=== PATIENT | female | born 1940 | race Caucasian/White ===

== ENCOUNTER 2016-08-30 16:43 | Observation (INO) | payer MEDICARE, OTHER ==
[2016-08-30] MEDS ORDERED: SODIUM CHLORIDE 0.9% 1,000 ML IV ONE ×2 (18:51)
[2016-08-30] MEDS ORDERED: ONDANSETRON 4 MG/2 ML VIAL IVP STA (19:24)
[2016-08-30] MEDS ORDERED: ONDANSETRON 4 MG/2 ML VIAL ONE ×2 (19:26→21:59)
[2016-08-30] MEDS ORDERED: PROMETHAZINE 25 MG/1 ML VIAL IM PRN (20:55)
[2016-08-30] MEDS ORDERED: ACETAMINOPHEN 325 MG TABLET PO PRN (20:55)
[2016-08-30] MEDS ORDERED: PROCHLORPERAZINE 10 MG/2 ML VIAL IVP PRN (20:55)
[2016-08-30] MEDS ORDERED: ONDANSETRON 4 MG/2 ML VIAL IVP PRN (20:55)
[2016-08-30] MEDS ORDERED: SODIUM CHLORIDE FLUSH 0.9% 10 ML SYRINGE IVP PRN (20:55)
[2016-08-30] MEDS ORDERED: TEMAZEPAM 15 MG CAPSULE PO PRN (20:55)
[2016-08-30] MEDS ORDERED: MAG HYDROX/AL HYDROX/SIMETH 30 ML UDC PO SCH (20:59)
[2016-08-30] MEDS: SODIUM CHLORIDE FLUSH 0.9% 10 ML SYRINGE IVP SCH (22:26)
[2016-08-30] MEDS: NS W/20 MEQ KCL 1,000 ML IV SCH (22:51)
[2016-08-31] MEDS ORDERED: PROMETHAZINE 25 MG/1 ML VIAL ONE (02:45)
[2016-08-31] MEDS: SODIUM CHLORIDE FLUSH 0.9% 10 ML SYRINGE IVP SCH ×3 (06:52→20:39)
[2016-08-31] MEDS: ENOXAPARIN 40 MG/0.4 ML SYRINGE SUBQ SCH (09:11)
[2016-08-31] MEDS: POLYETHYLENE GLYCOL 3350 17 GM PACKET PO SCH (09:11)
[2016-08-31] MEDS: NS W/20 MEQ KCL 1,000 ML IV SCH ×2 (09:12→19:22)
[2016-08-31] MEDS ORDERED: POTASSIUM CHLORIDE 20 MEQ TABLET PO ONE (11:50)
[2016-08-31] MEDS: guaiFENesin/DEXTROMETHORPHAN 10 ML UDC PO PRN (13:50)
[2016-09-01] MEDS: guaiFENesin/DEXTROMETHORPHAN 10 ML UDC PO PRN (01:03)
[2016-09-01] MEDS: NS W/20 MEQ KCL 1,000 ML IV SCH (05:10)
[2016-09-01] MEDS: SODIUM CHLORIDE FLUSH 0.9% 10 ML SYRINGE IVP SCH (05:10)
[2016-09-01] MEDS: POLYETHYLENE GLYCOL 3350 17 GM PACKET PO SCH (08:23)
[2016-09-01] MEDS: ENOXAPARIN 40 MG/0.4 ML SYRINGE SUBQ SCH (08:23)
[2016-09-01] MEDS ORDERED: LISINOPRIL 20 MG TABLET PO SCH (09:00)
[2016-09-01] MEDS ORDERED: amLODIPine 5 MG TABLET PO SCH (09:00)
[2016-09-01] MEDS ORDERED: POTASSIUM CHLORIDE 10 MEQ CAPSULE PO ONE (09:00)
== END 2016-09-01 10:25 | disposition home or self-care (01) ==
DX: K52.9 Noninfective gastroenteritis and colitis, unspecified (principal); E86.1 Hypovolemia; E22.2 Syndrome of inappropriate secretion of antidiuretic hormone; I10 Essential (primary) hypertension; E87.6 Hypokalemia; E86.0 Dehydration; J06.9 Acute upper respiratory infection, unspecified; F17.210 Nicotine dependence, cigarettes, uncomplicated; Z87.01 Personal history of pneumonia (recurrent); Z86.14 Personal history of Methicillin resistant Staphylococcus aureus infection
CPT/HCPCS: 36415; 71020; 80048; 80053; 81003; 82330; 82570; 83690; 83735; 83935; 84100; 84300; 84443; 85025; 87275; 87276; 96361; 96372; 96374; 96375; 96376; 99284; 99285; A9270; G0378; J1650

== ENCOUNTER 2016-09-26 15:23 | Outpatient (CLI) | payer MEDICARE, OTHER | END 2016-09-26 15:24 | disposition home or self-care (01) | DX: E78.5 Hyperlipidemia, unspecified (principal); Z86.2 Personal history of diseases of the blood and blood-forming organs and certain disorders involving the immune mechanism ==

== ENCOUNTER 2016-10-07 09:36 | Outpatient (CLI) | payer MEDICARE, OTHER | END 2016-10-07 09:37 | disposition home or self-care (01) | DX: Z71.3 Dietary counseling and surveillance (principal); R11.0 Nausea; Z68.1 Body mass index [BMI] 19.9 or less, adult ==

== ENCOUNTER 2016-12-19 11:10 | Outpatient (CLI) | payer MEDICARE, OTHER ==
[2016-12-19 19:21] LABS: CALCIUM 9.7 mg/dL (8.5-10.3); CREATININE 0.5 mg/dL (0.4-1.0); POTASSIUM 4.4 mmol/L (3.5-5.0)
== END 2016-12-19 11:11 | disposition home or self-care (01) ==
LOC: LAB.WCP 11:10
PROVIDERS: ATTEND Physician Assistant Medical
DX: I10 Essential (primary) hypertension (principal)
CPT/HCPCS: 36415; 80048

== ENCOUNTER 2017-09-29 12:25 | Outpatient (CLI) | payer MEDICARE, OTHER ==
--- NOTE | 2017-09-29 14:48 | CT Report ---
CT CHEST WITHOUT CONTRAST FOR LUNG CANCER SCREENIN09/29/2017 CLINICAL INDICATION: A 77-year-old with a [id number] history of smoking, current smoker for lung cancer screening. TECHNIQUE: Axial CT images of the chest were obtained without intravenous contrast, using low dose screening technique. COMPARISON: No previous CT is available for comparison. FINDINGS: The heart and great vessels demonstrate atherosclerotic calcifications. No hilar or mediastinal lymphadenopathy is present. The lungs demonstrate emphysema. No suspicious pulmonary nodule or mass lesion is present. No effusion or pneumothorax is present. Osseous structures demonstrate degenerative changes. Limited evaluation of upper abdominal structures demonstrates normal adrenal glands. IMPRESSION: EMPHYSEMA. NO EVIDENCE OF SUSPICIOUS PULMONARY NODULE OR MASS LESION. RECOMMENDATION: Continue annual screening with low dose chest CT in 12 months unless otherwise clinically indicated. LUNG RADS CATEGORY 1 - NEGATIVE. CT DOSE REDUCTION STATEMENT In accordance with CT protocol optimization, one or more of the following dose reduction techniques were utilized for this exam: automated exposure control, adjustment of mA and/or KV based on patient size, or use of iterative reconstructive technique. TD: 09/29/2017 14:47
== END 2017-09-29 12:26 | disposition home or self-care (01) ==
LOC: DI 12:25
PROVIDERS: ATTEND Physician Assistant Medical
DX: Z12.2 Encounter for screening for malignant neoplasm of respiratory organs (principal); J43.9 Emphysema, unspecified; F17.210 Nicotine dependence, cigarettes, uncomplicated

== ENCOUNTER 2017-09-30 07:11 | Outpatient (CLI) | payer MEDICARE, OTHER ==
[2017-09-30 12:46] LABS: EOSINOPHILS # (AUTO) 0.2 10^3/uL (0.0-0.7); EOSINOPHILS % (AUTO) 4.1 %; HGB - HEMOGLOBIN 13.6 g/dL (12.0-16.0); LYMPHOCYTES # (AUTO) 1.8 10^3/uL (1.5-3.5); LYMPHOCYTES % (AUTO) 40.4 %; MEAN CORPUSCULAR HEMOGLOBIN 34.2 pg (27.0-31.0); MEAN CORPUSCULAR HGB CONC 34.7 g/dL (32.0-36.0); MEAN CORPUSCULAR VOLUME 98.8 fL (81.0-99.0); MEAN PLATELET VOLUME 8.6 fL (7.9-10.8); MONOCYTES # (AUTO) 0.5 10^3/uL (0.0-1.0); MONOCYTES % (AUTO) 10.4 %; NEUTROPHILS % (AUTO) 44.1 %; PLT - PLATELET COUNT 169 10^3/uL (130-450); RED BLOOD COUNT 3.97 10^6/uL (4.20-5.40); RED CELL DISTRIBUTION WIDTH 13.1 % (12.0-15.0); WHITE BLOOD COUNT 4.4 x10^3/uL (4.8-10.8)
[2017-09-30 13:05] LABS: ALBUMIN 4.3 g/dL (3.2-5.5); ALBUMIN/GLOBULIN RATIO 1.9 (1.0-2.2); ALKALINE PHOSPHATASE 58 IU/L (42-121); ALT ALANINE AMINOTRANSFERASE 39 IU/L (10-60); AST ASPARTATE AMINOTRANSFERASE 28 IU/L (10-42); BILIRUBIN,TOTAL 0.8 mg/dL (0.2-1.0); BUN - BLOOD UREA NITROGEN 13 mg/dL (6-20); CALCIUM 9.4 mg/dL (8.5-10.3); CARBON DIOXIDE - CO2 28 mmol/L (21-32); CHLORIDE 98 mmol/L (101-111); CREATININE 0.6 mg/dL (0.4-1.0); GFR - MDRD 97 (>89); GLUCOSE 89 mg/dL (70-100); SODIUM 132 mmol/L (135-145); TOTAL PROTEIN 6.6 g/dL (6.7-8.2)
[2017-09-30 13:06] LABS: CHOL/HDL RATIO 2.3 (<4.4); CHOLESTEROL 169 mg/dL; HDL CHOLESTEROL 73 mg/dL; LDL CHOLESTEROL,CALCULATED 87 mg/dL; LDL/HDL RATIO 1.2 (<4.4); VLDL CHOLESTEROL 9 mg/dL
== END 2017-09-30 07:12 | disposition home or self-care (01) ==
LOC: LAB.WCP 07:11
PROVIDERS: ATTEND Physician Assistant Medical
DX: E78.5 Hyperlipidemia, unspecified (principal); Z86.2 Personal history of diseases of the blood and blood-forming organs and certain disorders involving the immune mechanism
CPT/HCPCS: 36415; 80053; 80061; 83721; 85025

== ENCOUNTER 2019-08-28 08:58 | Outpatient (CLI) | payer MEDICARE, BC ==
--- NOTE | 2019-08-28 14:04 | XRAY Report ---
Reason: right knee pain Procedure Date: 08/28/2019 Accession Number: [id number] / [id number] Procedure: XR - Knee Standing RT CPT Code: Final Report FULL RESULT: EXAM: RIGHT KNEE RADIOGRAPHY EXAM DATE: 08/28/2019 09:24 AM. CLINICAL HISTORY: Right knee pain. COMPARISON: None. TECHNIQUE: 3 views. FINDINGS: Bones: Bones are osteopenic. No evidence of acute fracture. There are some areas of lucency within the distal medial femur. These could represent subchondral cysts. Joints: No evidence of dislocation. There is a small suprapatellar joint effusion. There is moderate lateral compartment joint space narrowing. Soft Tissues: No unexpected soft tissue findings. IMPRESSION: 1. No fracture or dislocation. 2. There is moderate lateral compartment degenerative disease. 3. There is a small suprapatellar joint effusion. RADIA
== END 2019-08-28 08:59 | disposition home or self-care (01) ==
LOC: DI 08:58
PROVIDERS: ATTEND Physician Assistant Medical
DX: M17.11 Unilateral primary osteoarthritis, right knee (principal)

== ENCOUNTER 2020-03-21 14:04 | Outpatient (CLI) | payer MEDICARE, BC ==
--- NOTE | 2020-03-21 15:28 | XRAY Report ---
PROCEDURE: Ribs w/PA Chest RT INDICATIONS: RIGHT SIDED RIB PAIN TECHNIQUE: 2 views of the right ribs were acquired, along with a single view chest. COMPARISON: Chest radiograph dated 08/30/[address] of chest dated 09/29/2017 FINDINGS: Surgical changes and devices: None. Bones and chest wall: No fractures or dislocations. No suspicious bony lesions. Overlying soft tis sues appear unremarkable. Lungs and pleura: No pleural effusions or pneumothorax. Lungs appear clear. Mediastinum: Mediastinal contours appear normal. Heart size is normal. IMPRESSION: No gross displaced right rib fracture. No suspicious rib lesion. No acute cardiopulmonary pathology. Reviewed by: Morgan Triana MD on 03/21/2020 3:26 PM PDT Approved by: Morgan Triana MD on 03/21/2020 3:26 PM PDT Station ID: [id number]
== END 2020-03-21 23:59 ==
LOC: DI.WCP 14:04
PROVIDERS: ATTEND Family Medicine
DX: R07.81 Pleurodynia (principal)

== ENCOUNTER 2020-03-28 07:04 | Outpatient (CLI) | payer MEDICARE, BC ==
[2020-03-28 12:14] LABS: BASOPHILS # (AUTO) 0.1 10^3/uL (0.0-0.1); BASOPHILS % (AUTO) 1.1 %; EOSINOPHILS # (AUTO) 0.1 10^3/uL (0.0-0.7); EOSINOPHILS % (AUTO) 2.4 %; HGB - HEMOGLOBIN 14.3 g/dL (12.0-16.0); LYMPHOCYTES # (AUTO) 1.8 10^3/uL (1.5-3.5); LYMPHOCYTES % (AUTO) 38.6 %; MEAN CORPUSCULAR HGB CONC 33.9 g/dL (32.0-36.0); MEAN CORPUSCULAR VOLUME 103.2 fL (81.0-99.0); MEAN PLATELET VOLUME 9.9 fL (7.9-10.8); MONOCYTES # (AUTO) 0.5 10^3/uL (0.0-1.0); MONOCYTES % (AUTO) 10.3 %; NEUTROPHILS # (AUTO) 2.2 10^3/uL (1.5-6.6); NEUTROPHILS % (AUTO) 47.2 %; PLT - PLATELET COUNT 245 10^3/uL (130-450); RED BLOOD COUNT 4.09 10^6/uL (4.20-5.40); RED CELL DISTRIBUTION WIDTH 13.2 % (12.0-15.0); WHITE BLOOD COUNT 4.6 x10^3/uL (4.8-10.8)
[2020-03-28 12:36] LABS: % IRON SATURATION 58 % (20-50); ALBUMIN 4.3 g/dL (3.2-5.5); ALBUMIN/GLOBULIN RATIO 1.7 (1.0-2.2); ALKALINE PHOSPHATASE 82 IU/L (42-121); ALT ALANINE AMINOTRANSFERASE 31 IU/L (10-60); AST ASPARTATE AMINOTRANSFERASE 29 IU/L (10-42); BILIRUBIN,TOTAL 0.8 mg/dL (0.2-1.0); BUN - BLOOD UREA NITROGEN 12 mg/dL (6-20); CALCIUM 9.6 mg/dL (8.5-10.3); CARBON DIOXIDE - CO2 28 mmol/L (21-32); CHLORIDE 94 mmol/L (101-111); CHOL/HDL RATIO 2.3 (<4.4); CHOLESTEROL 205 mg/dL; CREATININE 0.6 mg/dL (0.4-1.0); FERRITIN 287.7 ng/mL (11.0-306.8); GLUCOSE 85 mg/dL (70-100); HDL CHOLESTEROL 89 mg/dL; IRON 183 ug/dL (28-170); LDL CHOLESTEROL,CALCULATED 100 mg/dL; LDL/HDL RATIO 1.1 (<4.4); SODIUM 130 mmol/L (135-145); TOTAL IRON BINDING CAPACITY 314 ug/dL (250-450); TOTAL PROTEIN 6.9 g/dL (6.7-8.2); TRANSFERRIN 224 mg/dL (192-382); VLDL CHOLESTEROL 16 mg/dL
== END 2020-03-28 23:59 | disposition home or self-care (01) ==
LOC: LAB.WCP 07:04
PROVIDERS: ATTEND Physician Assistant Medical
DX: E78.5 Hyperlipidemia, unspecified (principal); Z86.2 Personal history of diseases of the blood and blood-forming organs and certain disorders involving the immune mechanism; I10 Essential (primary) hypertension
CPT/HCPCS: 36415; 80053; 80061; 82728; 83540; 83721; 84443; 84466; 85025

== ENCOUNTER 2020-04-26 08:24 | Outpatient (CLI) | payer MEDICARE, BC | END 2020-04-26 08:25 | disposition critical access hospital (66) | LOC: EMS 08:24 | PROVIDERS: ATTEND Surgery | DX: M54.9 Dorsalgia, unspecified (principal); R42 Dizziness and giddiness; R61 Generalized hyperhidrosis | CPT/HCPCS: A0425; A0427 ==

== ENCOUNTER 2020-04-26 09:05 | Emergency (ER) | payer MEDICARE, BC ==
--- NOTE | 2020-04-26 09:16 | ED Physician Documentation ---
PD HPI BACK PAIN - Stated complaint Stated Complaint: WEAKNESS - History obtained from History obtained from: Patient - Additional information Additional information: 79-year-old woman with history of hypertension on lisinopril and amlodipine. She has been in her usual routine and got up this morning feeling pretty normal. She went out to walk her dog and around 7:45 AM developed a severe low backache and presyncope. There was no chest pain or shortness of breath. Paramedics were summoned and on an evaluation she was quite orthostatic, systolic blood pressure went from 90 supine to 60 or so standing. Pain is improved now. She h as never had this before. 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 HEENT: Cataracts, Tonsil/Adenoidectomy - Present Medications Home Medications: Ambulatory Orders Medication Instructions Recorded Confirmed lisinopriL [Prinivil] 20 mg PO DAILY 02/02/14 08/31/16 Eszopiclone [Lunesta] 2 mg PO QPM PRN 11/03/14 08/31/16 amLODIPine [Norvasc] 5 mg PO DAILY 08/31/16 08/31/16 guaiFENesin/DEXTROMETHORPHAN 10 ml PO Q6HR PRN #0 udc 09/01/16 [Robitussin Dm] - Allergies Allergies/Adverse Reactions: Allergies Allergy/AdvReac Type Severity Reaction Status Date / Time codeine Allergy Hives Verified 11/05/14 10:12 loratadine [From Claritin-D] Allergy Emesis Verified 11/05/14 10:12 meperidine HCl * Allergy Hives Verified 11/05/14 10:12 [From Demerol] pseudoephedrine sulfate * Allergy Emesis Verified 11/05/14 10:12 [From Claritin-D] - Social History Does the pt smoke?: Yes Smoking Status: Current every day smoker Does the pt drink ETOH?: Yes Does the pt have substance abuse?: No - Immunizations Immunizations are current?: Yes - POLST Patient has POLST: No PD ED PE NORMAL - Vitals Vital signs reviewed: Yes - General General: Alert and oriented X 3, Other (Appears slightly uncomfortable) - HEENT HEENT: PERRL, EOMI - Neck Neck: Supple, no meningeal sign, No bony TTP - Cardiac Cardiac: RRR, No murmur - Respiratory Respiratory: No respiratory distress, Clear bilaterally - Abdomen Abdomen: Soft, Non tender, Other (I do not appreciate a AAA on bedside ultrasound) - Derm Derm: Normal color, Warm and dry - Extremities Extremities: Other (Feet are warm and well perfused) - Neuro Neuro: Alert and oriented X 3, Normal speech - Psych Psych: Normal mood, Normal affect Results - Vitals Vitals: Vital Signs - 24 hr 04/26/20 04/26/20 04/26/20 09:10 09:30 09:54 Temperature 36.3 C L Heart Rate 66 65 Respiratory 16 20 Rate Blood Pressure 117/75 73/50 L Blood Pressure 79/48 L [Left] Blood Pressure 80/51 L [Right] O2 Saturation 95 93 04/26/20 04/26/20 04/26/20 10:03 10:04 10:09 Temperature Heart Rate 76 Respiratory 21 Rate Blood Pressure Blood Pressure 75/51 L 78/52 L [Left] Blood Pressure 76/54 L 85/51 L [Right] O2 Saturation 100 04/26/20 04/26/20 10:11 10:15 Temperature 36.5 C Heart Rate 77 Respiratory 21 Rate Blood Pressure Blood Pressure 87/57 L [Left] Blood Pressure 91/56 L [Right] O2 Saturation 97 Oxygen O2 Source Room air - EKG (time done) 0918 Rate: Rate (enter#) (62) Rhythm: NSR [place]: Normal Intervals: Other (borderline IVCD) QRS: Low voltage Ischemia: Normal ST segments Computer interpretation: Agree with computer - Labs Labs: Laboratory Tests 04/26/20 04/26/20 04/26/20 09:26 09:26 09:26 WBC 6.8 RBC 3.41 L Hgb 11.7 L Hct 34.7 L MCV 101.8 H MCH 34.3 H MCHC 33.7 RDW 12.8 Plt Count 147 MPV 9.0 Neut # (Auto) 4.6 Lymph # (Auto) 1.5 [place] # (Auto) 0.5 Eos # (Auto) 0.1 Baso # (Auto) 0.0 Absolute Nucleated RBC 0.00 Nucleated RBC % 0.0 PT 13.2 H INR 1.2 Sodium 134 L Potassium 3.9 Chloride 98 L Carbon Dioxide 27 Anion Gap 9.0 BUN 16 Creatinine 0.7 Estimated GFR (MDRD) 81 L Glucose 98 Calcium 9.0 Total Bilirubin 0.8 AST 24 ALT 26 Alkaline Phosphatase 76 Troponin I High Sens Total Protein 5.5 L Albumin 3.6 Globulin 1.9 L Albumin/Globulin Ratio 1.9 04/26/20 09:26 WBC RBC Hgb Hct MCV MCH MCHC RDW Plt Count MPV Neut # (Auto) Lymph # (Auto) [place] # (Auto) Eos # (Auto) Baso # (Auto) Absolute Nucleated RBC Nucleated RBC % PT INR Sodium Potassium Chloride Carbon Dioxide Anion Gap BUN Creatinine Estimated GFR (MDRD) Glucose Calcium Total Bilirubin AST ALT Alkaline Phosphatase Troponin I High Sens 3.4 Total Protein Albumin Globulin Albumin/Globulin Ratio - Rads (name of study) CT Chest Angio Radiology: EMP read contemporaneously (Type a thoracic aortic dissection from a dilated aortic root measuring 5.3 cm down to the upper abdominal aorta. It looks like it occludes the celiac trunk and into the SMA origin. Renal arteries are patent.) PD MEDICAL DECISION MAKING - ED course ED course: 79-year-old woman presents with backache and hypotension, orthostatic. Given the constellation of symptoms, vascular etiology is of significant concern. Bedside ultrasound did not demonstrate a AAA, subsequently went over to CT noting that I told the vocational technical education director to do this before labs have a high suspicion for dissection and she does have a type a aortic dissection. [facility] was called for expedited transfer. She was accepted the [facility] by Dr. Joe Hines, cobras were completed. She has been on and off hypotensive in the range of 90/60 in both upper extremities. This was discussed with the cardiothoracic surgeon and felt like as long as her mentation was okay, which it was, this is acceptable. - Critical Care Time(min): 45 Time Includes: Direct patient care, Review records, Reassess patient, Document care, Coordinate care, Medical consult Data interpretation: Labs, Pulse ox Procedures excluded from critical care time: EKG Departure - Departure Disposition: 02 Transfer Acute Care Hosp Clinical Impression: Type 1 dissection of ascending aorta Condition: Critical
[2020-04-26] MEDS ORDERED: IOVERSOL 320 100 ML VIAL IVP ONE ×2 (09:31→17:32)
[2020-04-26 09:36] LABS: BASOPHILS % (AUTO) 0.6 %; EOSINOPHILS # (AUTO) 0.1 10^3/uL (0.0-0.7); EOSINOPHILS % (AUTO) 1.3 %; HGB - HEMOGLOBIN 11.7 g/dL (12.0-16.0); LYMPHOCYTES # (AUTO) 1.5 10^3/uL (1.5-3.5); LYMPHOCYTES % (AUTO) 21.5 %; MEAN CORPUSCULAR HEMOGLOBIN 34.3 pg (27.0-31.0); MEAN CORPUSCULAR HGB CONC 33.7 g/dL (32.0-36.0); MEAN CORPUSCULAR VOLUME 101.8 fL (81.0-99.0); MONOCYTES # (AUTO) 0.5 10^3/uL (0.0-1.0); MONOCYTES % (AUTO) 7.5 %; NEUTROPHILS # (AUTO) 4.6 10^3/uL (1.5-6.6); NEUTROPHILS % (AUTO) 68.2 %; PLT - PLATELET COUNT 147 10^3/uL (130-450); RED BLOOD COUNT 3.41 10^6/uL (4.20-5.40); RED CELL DISTRIBUTION WIDTH 12.8 % (12.0-15.0); WHITE BLOOD COUNT 6.8 x10^3/uL (4.8-10.8)
[2020-04-26] MEDS ORDERED: SODIUM CHLORIDE 0.9% 1,000 ML IV STA (09:38)
[2020-04-26 09:39] LABS: INR 1.2 (0.8-1.2); PT - PROTHROMBIN TIME 13.2 secs (9.9-12.6)
[2020-04-26 09:46] LABS: ALBUMIN 3.6 g/dL (3.2-5.5); ALBUMIN/GLOBULIN RATIO 1.9 (1.0-2.2); BILIRUBIN,TOTAL 0.8 mg/dL (0.2-1.0); CREATININE 0.7 mg/dL (0.4-1.0); TOTAL PROTEIN 5.5 g/dL (6.7-8.2)
--- NOTE | 2020-04-26 10:15 | CT Report ---
PROCEDURE: ANGIO CHEST W/WO INDICATIONS: aorta protocol, back pain, hypotension CONTRAST: IV CONTRAST: Optiray 320 ml: 100 PO CONTRAST: *NO PO CONTRAST TECHNIQUE: After the administration of intravenous contrast, 2 mm thick sections acquired from the pulmonary api silviano to the posterior costophrenic angles. 3-dimensional maximum intensity projection (MIP) coronal a nd sagittal reformats were then acquired through the thorax. For radiation dose reduction, the follow ing was used: automated exposure control, adjustment of mA and/or kV according to patient size. COMPARISON: CT chest 09/29/2017 FINDINGS: Massive dilatation of the aortic root and descending aortic arch up to 5.3 cm. There is a [place] a aortic dissection. The true lumen involves/contains the origins of the 3 arch branch vessels. The dis section flap does not extend into the arch branch vessels. The dissection flap does however extend th rough the aortic arch and descending thoracic aorta. Noncontrast images demonstrate no evidence of hy perdense periaortic hemorrhage to indicate rupture. The dissection extends into the upper abdominal aorta. The celiac trunk arises from the false lumen a nd is completely occluded. The dissection flap itself extends into the SMA origin, resulting in appro ximately 30-40% stenosis of the SMA origin. Both renal arteries are widely patent. Please see CT monalisa ogram of the abdominal aorta for further description abdominal and pelvic vascular findings. Lungs and pleural spaces are predominantly clear with a few nonspecifically solid nodules measuring u p to 5 mm in both lungs.4 no pericardial effusion. 4 vessel coronary atherosclerosis. Normal caliber main pulmonary trunk. No threshold enlarged mediastinal or hilar lymph node. No acute osseous finding . IMPRESSION: [place] type A thoracic aortic dissection. Findings were discussed with Dr. Kwan at 1000 on 04/13. Reviewed by: Alon Powell MD on 04/26/2020 10:14 AM PDT Approved by: Alon Powell MD on 04/26/2020 10:14 AM PDT Station ID: [id number]
--- NOTE | 2020-04-26 10:27 | CT Report ---
PROCEDURE: ANGIO ABDOMEN/PELVIS W INDICATIONS: Aortic dissection CONTRAST: IV CONTRAST: Optiray 320 ml: 100 PO CONTRAST: *NO PO CONTRAST TECHNIQUE: After the administration of intravenous contrast, 2 and 5 mm sections acquired from the diaphragm to the iliac crests. 3-dimensional maximum intensity projection (MIP) coronal and sagittal reformats, a nd/or 3-dimensional volume rendering reformatting was then performed. For radiation dose reduction, the following was used: automated exposure control, adjustment of mA and/or kV according to patient size. COMPARISON: None FINDINGS: Image quality: Excellent. Extravascular tissues: Lung bases are clear. Heart size is normal. Liver and spleen are normal in size and enhancement. Gallbladder has been removed Biliary system is dilated, slightly greater than expected for age and likely due to postcholecystectomy reservoir phenomenon Pancreas enhances normal ly. No adrenal nodules. Renal cysts without evidence of hydronephrosis or solid renal mass. Non-opac ified bowel loops demonstrate normal wall thickness and caliber. No free fluid or air. No retroperi toneal or mesenteric adenopathy. No ventral hernias. No suspicious bony abnormalities. No vertebra l body compression fractures. Abdominal aorta and visceral branches: [place] type A dissection extends into the SMA origin with a pproximately 30-40% stenosis as a result. The mesenteric vasculature appears normally perfused, howev er. The false lumen of the dissection occludes the celiac trunk. Both renal arteries are widely paten t. The [place] is widely patent. The iliac and femoral vessels demonstrate no evidence of stenosis. IMPRESSION: 1. [place] type A dissection extending into and mildly narrowing the SMA origin. 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 Dr. Todd was aware of the findings. Reviewed by: Alon Powell MD on 04/26/2020 10:26 AM PDT Approved by: Alon Powell MD on 04/26/2020 10:26 AM PDT Station ID: [id number]
[2020-04-26 10:30] VITALS: BP 83/51
== END 2020-04-26 10:39 | disposition short-term general hospital (02) ==
LOC: EDUNIT# → ED 09:05
DX: I71.01 Dissection of thoracic aorta (principal); I10 Essential (primary) hypertension; F17.200 Nicotine dependence, unspecified, uncomplicated
CPT/HCPCS: 36415; 71275; 74174; 80053; 84484; 85025; 85610; 93005; 99285; 99291; Q9967

== ENCOUNTER 2020-05-12 16:20 | Emergency (ER) | payer MEDICARE, BC ==
--- NOTE | 2020-05-12 16:35 | ED Physician Documentation ---
History of Present Illness - Stated complaint Stated Complaint: SOA/HBP/NOT RESPONDING TO MEDS - History obtained from History obtained from: Patient - History of Present Illness Timing: How many days ago (several) Pain level max: 0 Pain level now: 0 - Additonal information Additional information: Patient is a 79-year-old female who is status post a type a dissection status post supra coronary ascending aortic replacement with a 26 mm Dacron graft and transverse aortic arch graft. Her postoperative course after 04/26/2020 was complicated by a pericardial effusion, received a subxiphoid window on 05/03/2020. She also received chest tubes for bilateral pleural effusions. She was discharged on 05/08/2020. She states that since that time she has had increased difficulty breathing. Feels more and more short of breath. Contacted the [facility] who referred her here for evaluation. Worse with movement, better with rest. No fever. No chills. Has bilateral lower extremity swelling as well. Is on Lasix at home Review of Systems Ten Systems: 10 systems reviewed and negative Constitutional: denies: Fever, Chills Ears: denies: Ear pain Nose: denies: Rhinorrhea / runny nose, Congestion Respiratory: reports: Dyspnea. 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 HEENT: Cataracts, Tonsil/Adenoidectomy - Present Medications Home Medications: Ambulatory Orders Medication Instructions Recorded Confirmed lisinopriL [Prinivil] 20 mg PO DAILY 02/02/14 08/31/16 Eszopiclone [Lunesta] 2 mg PO QPM PRN 11/03/14 08/31/16 amLODIPine [Norvasc] 5 mg PO DAILY 08/31/16 08/31/16 guaiFENesin/DEXTROMETHORPHAN 10 ml PO Q6HR PRN #0 udc 09/01/16 [Robitussin Dm] - Allergies Allergies/Adverse Reactions: Allergies Allergy/AdvReac Type Severity Reaction Status Date / Time codeine Allergy Hives Verified 05/12/20 16:32 loratadine [From Claritin-D] Allergy Emesis Verified 05/12/20 16:32 meperidine HCl * Allergy Hives Verified 05/12/20 16:32 [From Demerol] pseudoephedrine sulfate * Allergy Emesis Verified 05/12/20 16:32 [From Claritin-D] - Social History Does the pt smoke?: Yes Smoking Status: Current every day smoker Does the pt drink ETOH?: Yes Does the pt have substance abuse?: No - Immunizations Immunizations are current?: Yes - POLST Patient has POLST: No PD ED PE NORMAL - Vitals Vital signs reviewed: Yes - General General: Alert and oriented X 3, No acute distress - HEENT HEENT: Moist mucous membranes - Neck Neck: Supple, no meningeal sign - Cardiac Cardiac: RRR, Strong equal pulses - Respiratory Respiratory: No respiratory distress, Other (crackles B) - Abdomen Abdomen: Soft, Non tender, Non distended - Derm Derm: Warm and dry - Extremities Extremities: Other (2+ B LE edema) - Neuro Neuro: Alert and oriented X 3 Results - Vitals Vitals: Vital Signs - 24 hr 05/12/20 05/12/20 05/12/20 16:30 17:00 17:30 Temperature 36.8 C Heart Rate 109 H 86 94 Respiratory 18 16 17 Rate Blood Pressure 179/102 H 154/86 H 152/85 H O2 Saturation 99 99 98 05/12/20 05/12/20 05/12/20 18:00 18:30 19:00 Temperature Heart Rate 98 100 101 H Respiratory 18 18 29 H Rate Blood Pressure 167/88 H 160/113 H 153/87 H O2 Saturation 99 99 95 05/12/20 05/12/20 05/12/20 19:30 20:00 20:30 Temperature Heart Rate 95 96 119 H Respiratory 28 H 25 H 28 H Rate Blood Pressure 140/71 H 134/72 H 135/85 H O2 Saturation 96 94 100 05/12/20 21:00 Temperature Heart Rate 111 H Respiratory 24 Rate Blood Pressure 134/84 H O2 Saturation 93 Oxygen O2 Source Room air - EKG (time done) 1632 Rate: Rate (enter#) (95) Rhythm: NSR, Other (PVC) [place]: Normal Intervals: Normal [place] QRS: Normal Ischemia: Normal ST segments, Q waves (V1-3) - Labs Labs: Laboratory Tests 05/12/20 05/12/20 05/12/20 16:35 16:35 16:35 WBC 12.1 H RBC 2.92 L Hgb 9.8 L Hct 29.8 L MCV 102.1 H MCH 33.6 H MCHC 32.9 RDW 17.2 H Plt Count 391 MPV 9.1 Neut # (Auto) 9.5 H Lymph # (Auto) 1.1 L [place] # (Auto) 1.3 H Eos # (Auto) 0.0 Baso # (Auto) 0.0 Absolute Nucleated RBC 0.00 Nucleated RBC % 0.0 Sodium 127 L Potassium 3.9 Chloride 92 L Carbon Dioxide 26 Anion Gap 9.0 BUN 12 Creatinine 0.4 Estimated GFR (MDRD) 154 Glucose 126 H Calcium 9.2 Total Bilirubin 0.5 AST 17 ALT 22 Alkaline Phosphatase 101 B-Natriuretic Peptide 309 H Total Protein 6.3 L Albumin 3.2 Globulin 3.1 Albumin/Globulin Ratio 1.0 Lipase 19 L Urine Color Urine Clarity Urine pH Ur Specific [place] Urine Protein Urine Glucose (UA) Urine Ketones Urine Occult Blood Urine Nitrite Urine Bilirubin Urine Urobilinogen Ur Leukocyte Esterase Ur Microscopic Review Urine Culture Comments 05/12/20 18:15 WBC RBC Hgb Hct MCV MCH MCHC RDW Plt Count MPV Neut # (Auto) Lymph # (Auto) [place] # (Auto) Eos # (Auto) Baso # (Auto) Absolute Nucleated RBC Nucleated RBC % Sodium Potassium Chloride Carbon Dioxide Anion Gap BUN Creatinine Estimated GFR (MDRD) Glucose Calcium Total Bilirubin AST ALT Alkaline Phosphatase B-Natriuretic Peptide Total Protein Albumin Globulin Albumin/Globulin Ratio Lipase Urine Color YELLOW Urine Clarity CLEAR Urine pH 7.5 Ur Specific [place] 1.010 Urine Protein NEGATIVE Urine Glucose (UA) NEGATIVE Urine Ketones TRACE Urine Occult Blood NEGATIVE Urine Nitrite NEGATIVE Urine Bilirubin NEGATIVE Urine Urobilinogen 0.2 (NORMAL) Ur Leukocyte Esterase NEGATIVE Ur Microscopic Review NOT INDICATED Urine Culture Comments NOT INDICATED - Rads (name of study) cxr Radiology: Prelim report reviewed, EMP read contemporaneously, See rad report CT pulmonary angiogram Radiology: Prelim report reviewed, EMP read contemporaneously, See rad report PD MEDICAL DECISION MAKING - ED course Complexity details: reviewed old records, reviewed results, re-evaluated patient, considered differential, d/w patient, d/w family, d/w [place] consultant ED course: Patient with dyspnea 2 weeks status post ascending aortic dissection repair. She appears to have a left-sided pneumonia. Discussed the case with Dr. Larose, CT surgery at [facility]. Recommends admission to the hospitalist service here, IV antibiotics and continue diuresis. If she worsens over the weekend, would recommend transfer. He also recommends an echocardiogram. I discussed the case with Dr. Ricardo, hospitalist who does not feel comfortable keeping this patient here, in addition we do not have echo this weekend. Call Dr. Larose back, he states she probably does not need an echo and still recommends admission here. Discussed again with my hospitalist Dr. Ricardo who still does not feel comfortable keeping this patient here and feels she would be better served at a tertiary care facility. Call the [facility] back and request transfer. Transfer is pending at the time of signout. COBRA forms are completed, the patient will need continued treatment for her pneumonia while she is in the emergency department. She is eating and drinking. She states she feels better. Patient signed out to the oncoming emergency department physician. CXR Left greater than right small pleural effusions with overlying airspace opacity, likely atelectasis although consolidation from infection would need clinical exclusion. CT pulmonary angiogram: Post surgical changes of open surgical repair for [place] category A aortic dissection, along with fenestration of the distal aortic dissection segment. No acute postoperative complication identifi ed. Small-moderate bilateral pleural effusions with overlying atelectasis bilaterally, and overlying consolidation on the left. This could represent pneumonia and is the most plausible explanation for the patient's shortness of breath. No coronary embolism. Departure - Departure Disposition: 02 Transfer Acute Care Hosp Clinical Impression: Pleural effusion, Hyponatremia Pneumonia Qualifiers: Pneumonia type: due to unspecified organism Laterality: left Lung location: lower lobe of lung Qualified Code(s): J18.9 - Pneumonia, unspecified organism Dyspnea Qualifiers: Dyspnea type: unspecified Qualified Code(s): R06.00 - Dyspnea, unspecified Condition: Stable
[2020-05-12 16:41] LABS: BASOPHILS % (AUTO) 0.3 %; EOSINOPHILS % (AUTO) 0.3 %; HGB - HEMOGLOBIN 9.8 g/dL (12.0-16.0); LYMPHOCYTES # (AUTO) 1.1 10^3/uL (1.5-3.5); MEAN CORPUSCULAR HEMOGLOBIN 33.6 pg (27.0-31.0); MEAN CORPUSCULAR HGB CONC 32.9 g/dL (32.0-36.0); MEAN CORPUSCULAR VOLUME 102.1 fL (81.0-99.0); MEAN PLATELET VOLUME 9.1 fL (7.9-10.8); MONOCYTES # (AUTO) 1.3 10^3/uL (0.0-1.0); MONOCYTES % (AUTO) 10.5 %; NEUTROPHILS # (AUTO) 9.5 10^3/uL (1.5-6.6); NEUTROPHILS % (AUTO) 78.3 %; PLT - PLATELET COUNT 391 10^3/uL (130-450); RED BLOOD COUNT 2.92 10^6/uL (4.20-5.40); RED CELL DISTRIBUTION WIDTH 17.2 % (12.0-15.0); WHITE BLOOD COUNT 12.1 x10^3/uL (4.8-10.8)
--- NOTE | 2020-05-12 16:49 | XRAY Report ---
PROCEDURE: Chest 1 View X-Ray INDICATIONS: Chest Pain TECHNIQUE: One view of the chest was acquired. COMPARISON: 04/26/2020 CT angio chest FINDINGS: Surgical changes and devices: Median sternotomy changes. Lungs and pleura: Bilateral pleural effusions, left greater than right. Overlying atelectasis versus consolidation. No pneumothorax. Mediastinum: Mediastinal contours appear normal. Heart size is normal. Bones and chest wall: No suspicious bony lesions. Overlying soft tissues appear unremarkable. IMPRESSION: Left greater than right small pleural effusions with overlying airspace opacity, likely atelectasis a lthough consolidation from infection would need clinical exclusion. Reviewed by: Alon Powell MD on 05/12/2020 4:47 PM PDT Approved by: Alon Powell MD on 05/12/2020 4:47 PM PDT Station ID: [id number]
[2020-05-12 16:59] LABS: ALBUMIN 3.2 g/dL (3.2-5.5); BILIRUBIN,TOTAL 0.5 mg/dL (0.2-1.0); CALCIUM 9.2 mg/dL (8.5-10.3); CREATININE 0.4 mg/dL (0.4-1.0); TOTAL PROTEIN 6.3 g/dL (6.7-8.2)
[2020-05-12] MEDS ORDERED: IOVERSOL 320 100 ML VIAL IVP ONE ×2 (17:14→18:06)
--- NOTE | 2020-05-12 18:32 | CT Report ---
PROCEDURE: ANGIO CHEST W/WO INDICATIONS: dyspnea, possible PE, recent aortic graft, CONTRAST: IV CONTRAST: Optiray 320 ml: 80 PO CONTRAST: *NO PO CONTRAST TECHNIQUE: After the administration of intravenous contrast, 2 mm thick sections acquired from the pulmonary api silviano to the posterior costophrenic angles. 3-dimensional maximum intensity projection (MIP) coronal a nd sagittal reformats were then acquired through the thorax. For radiation dose reduction, the follow ing was used: automated exposure control, adjustment of mA and/or kV according to patient size. COMPARISON: 04/26/2020 FINDINGS: There are postsurgical changes of median sternotomy for open repair of previously identified [place] A aortic dissection. There is small volume fluid and air, within expected postoperative normal limit s status post median sternotomy. A stent graft is in place within the aortic root extending to the pr oximal aortic arch, appearing patent with no evidence of thrombosis or occlusion. The arch branch ves sels are adequately perfused with no evidence of flow limitation or occlusion. There is no contrast l eakage beyond the confines of the stent. There is some hyperdense but not contrast density material w ithin the medial and inferior aspects of the aortic arch, present on the prior study and presumably r epresenting retained intramural blood products or perhaps blood products within the false lumen. The dissection flap again extends through the aortic arch and descending thoracic aorta into the upper ab dominal aorta. The upper abdominal portion of the dissection flap appears to have been fenestrated to a degree, as there is improved perfusion of both the celiac trunk and SMA when compared with the charan or study, although flow is not entirely equal in density to that of the true lumen. Small to moderate-sized pleural effusions have developed, with overlying passive atelectasis combinat ion of overlying consolidation on the left (potentially consolidative atelectasis or pneumonia). No evidence of pulmonary embolism. IMPRESSION: Post surgical changes of open surgical repair for [place] category A aortic dissection, along with f enestration of the distal aortic dissection segment. No acute postoperative complication identified. Small-moderate bilateral pleural effusions with overlying atelectasis bilaterally, and overlying cons olidation on the left. This could represent pneumonia and is the most plausible explanation for the p atient's shortness of breath. No coronary embolism. Reviewed by: Alon Powell MD on 05/12/2020 6:31 PM PDT Approved by: Alon Powell MD on 05/12/2020 6:31 PM PDT Station ID: [id number]
[2020-05-12 18:45] LABS: BILIRUBIN,URINE NEGATIVE (NEGATIVE); GLUCOSE, URINE (UA) NEGATIVE (NEGATIVE); KETONES,URINE (UA) TRACE mg/dL (NEGATIVE); LEUKOCYTE ESTERASE, URINE NEGATIVE (NEGATIVE); NITRITE,URINE NEGATIVE (NEGATIVE); OCCULT BLOOD,URINE NEGATIVE (NEGATIVE); PH,URINE 7.5 PH (5.0-7.5); PROTEIN,URINE NEGATIVE (NEGATIVE); UROBILINOGEN,URINE 0.2 (NORMAL) E.U./dL (NORMAL)
[2020-05-12 18:49] LABS: CLARITY,URINE CLEAR (CLEAR)
[2020-05-12] MEDS ORDERED: AZITHROMYCIN INJ 500 MG in SODIUM CHLORIDE 0.9% 250 ML IV STA (20:20)
[2020-05-12] MEDS ORDERED: cefTRIAXone 1 GM VIAL IVP STA (20:20)
[2020-05-12] MEDS ORDERED: FUROSEMIDE 40 MG/4 ML VIAL IVP STA (20:20)
[2020-05-13 00:55] VITALS: BP 127/80
== END 2020-05-13 00:55 | disposition short-term general hospital (02) ==
LOC: ED 16:20
DX: J90 Pleural effusion, not elsewhere classified (principal); J18.9 Pneumonia, unspecified organism; E87.1 Hypo-osmolality and hyponatremia; I10 Essential (primary) hypertension; F17.200 Nicotine dependence, unspecified, uncomplicated
CPT/HCPCS: 36415; 71045; 71275; 80053; 81003; 83690; 83880; 85025; 93005; 96374; 99284; 99285; Q9967; U0004; 81001; 87086

== ENCOUNTER 2020-05-13 01:00 | Outpatient (CLI) | payer MEDICARE, BC | END 2020-05-13 01:01 | disposition short-term general hospital (02) | LOC: EMS 01:00 | PROVIDERS: ATTEND Surgery | DX: J90 Pleural effusion, not elsewhere classified (principal); J18.9 Pneumonia, unspecified organism | CPT/HCPCS: A0425; A0426 ==

== ENCOUNTER 2020-07-20 11:00 | Outpatient (CLI) | payer MEDICARE, BC ==
[2020-07-20 18:46] LABS: BASOPHILS # (AUTO) 0.1 10^3/uL (0.0-0.1); BASOPHILS % (AUTO) 1.3 %; EOSINOPHILS # (AUTO) 0.1 10^3/uL (0.0-0.7); EOSINOPHILS % (AUTO) 2.1 %; HGB - HEMOGLOBIN 10.8 g/dL (12.0-16.0); LYMPHOCYTES # (AUTO) 1.8 10^3/uL (1.5-3.5); MEAN CORPUSCULAR HEMOGLOBIN 30.3 pg (27.0-31.0); MEAN CORPUSCULAR HGB CONC 31.7 g/dL (32.0-36.0); MEAN CORPUSCULAR VOLUME 95.8 fL (81.0-99.0); MONOCYTES # (AUTO) 0.5 10^3/uL (0.0-1.0); MONOCYTES % (AUTO) 7.8 %; NEUTROPHILS # (AUTO) 3.8 10^3/uL (1.5-6.6); NEUTROPHILS % (AUTO) 60.3 %; PLT - PLATELET COUNT 266 10^3/uL (130-450); RED BLOOD COUNT 3.56 10^6/uL (4.20-5.40); RED CELL DISTRIBUTION WIDTH 16.2 % (12.0-15.0); WHITE BLOOD COUNT 6.3 x10^3/uL (4.8-10.8)
[2020-07-20 19:04] LABS: ALBUMIN 3.8 g/dL (3.2-5.5); ALBUMIN/GLOBULIN RATIO 1.3 (1.0-2.2); BILIRUBIN,TOTAL 0.4 mg/dL (0.2-1.0); CALCIUM 9.6 mg/dL (8.5-10.3); CREATININE 0.4 mg/dL (0.4-1.0); TOTAL PROTEIN 6.7 g/dL (6.7-8.2)
== END 2020-07-20 23:59 | disposition home or self-care (01) ==
LOC: LAB.WCP 11:00
PROVIDERS: ATTEND Physician Assistant Medical
DX: I50.9 Heart failure, unspecified (principal); I71.00 Dissection of unspecified site of aorta
CPT/HCPCS: 36415; 80053; 85025

== ENCOUNTER 2020-08-29 08:00 | Outpatient (CLI) | payer MEDICARE, BC ==
[2020-08-29 17:52] LABS: BASOPHILS # (AUTO) 0.1 10^3/uL (0.0-0.1); EOSINOPHILS # (AUTO) 0.2 10^3/uL (0.0-0.7); EOSINOPHILS % (AUTO) 3.1 %; HGB - HEMOGLOBIN 11.6 g/dL (12.0-16.0); LYMPHOCYTES # (AUTO) 1.7 10^3/uL (1.5-3.5); LYMPHOCYTES % (AUTO) 32.9 %; MEAN CORPUSCULAR HEMOGLOBIN 29.6 pg (27.0-31.0); MEAN CORPUSCULAR HGB CONC 31.7 g/dL (32.0-36.0); MEAN CORPUSCULAR VOLUME 93.4 fL (81.0-99.0); MEAN PLATELET VOLUME 10.2 fL (7.9-10.8); MONOCYTES # (AUTO) 0.5 10^3/uL (0.0-1.0); MONOCYTES % (AUTO) 8.7 %; NEUTROPHILS # (AUTO) 2.8 10^3/uL (1.5-6.6); NEUTROPHILS % (AUTO) 53.9 %; PLT - PLATELET COUNT 199 10^3/uL (130-450); RED BLOOD COUNT 3.92 10^6/uL (4.20-5.40); RED CELL DISTRIBUTION WIDTH 16.7 % (12.0-15.0); WHITE BLOOD COUNT 5.2 x10^3/uL (4.8-10.8)
[2020-08-29 20:29] LABS: CALCIUM 9.8 mg/dL (8.5-10.3); CREATININE 0.6 mg/dL (0.4-1.0)
== END 2020-08-29 23:59 | disposition home or self-care (01) ==
LOC: LAB.WCP 08:00
PROVIDERS: ATTEND Physician Assistant Medical
DX: I71.00 Dissection of unspecified site of aorta (principal); Z86.2 Personal history of diseases of the blood and blood-forming organs and certain disorders involving the immune mechanism
CPT/HCPCS: 36415; 80048; 82728; 83540; 84466; 85025

== ENCOUNTER 2020-11-28 08:00 | Outpatient (CLI) | payer MEDICARE, BC ==
[2020-11-28 18:01] LABS: BASOPHILS % (AUTO) 0.7 %; EOSINOPHILS # (AUTO) 0.1 10^3/uL (0.0-0.7); EOSINOPHILS % (AUTO) 2.3 %; HCT - HEMATOCRIT 35.5 % (37.0-47.0); HGB - HEMOGLOBIN 11.4 g/dL (12.0-16.0); LYMPHOCYTES # (AUTO) 1.5 10^3/uL (1.5-3.5); LYMPHOCYTES % (AUTO) 26.5 %; MEAN CORPUSCULAR HEMOGLOBIN 30.8 pg (27.0-31.0); MEAN CORPUSCULAR HGB CONC 32.1 g/dL (32.0-36.0); MEAN CORPUSCULAR VOLUME 95.9 fL (81.0-99.0); MEAN PLATELET VOLUME 10.2 fL (7.9-10.8); MONOCYTES # (AUTO) 0.5 10^3/uL (0.0-1.0); MONOCYTES % (AUTO) 8.7 %; NEUTROPHILS # (AUTO) 3.5 10^3/uL (1.5-6.6); NEUTROPHILS % (AUTO) 61.5 %; PLT - PLATELET COUNT 212 10^3/uL (130-450); RED CELL DISTRIBUTION WIDTH 14.5 % (12.0-15.0); WHITE BLOOD COUNT 5.7 x10^3/uL (4.8-10.8)
[2020-11-28 18:22] LABS: ALBUMIN/GLOBULIN RATIO 1.3 (1.0-2.2); BILIRUBIN,TOTAL 0.6 mg/dL (0.2-1.0); CALCIUM 9.5 mg/dL (8.5-10.3); CREATININE 0.6 mg/dL (0.4-1.0); POTASSIUM 3.8 mmol/L (3.5-5.0)
== END 2020-11-28 23:59 | disposition home or self-care (01) ==
LOC: LAB.WCP 08:00
PROVIDERS: ATTEND Physician Assistant Medical
DX: I71.00 Dissection of unspecified site of aorta (principal)
CPT/HCPCS: 36415; 80053; 85025

== ENCOUNTER 2021-06-19 08:00 | Outpatient (CLI) | payer MEDICARE, BC ==
[2021-06-19 12:21] LABS: BASOPHILS # (AUTO) 0.1 10^3/uL (0.0-0.1); EOSINOPHILS # (AUTO) 0.2 10^3/uL (0.0-0.7); EOSINOPHILS % (AUTO) 3.4 %; HCT - HEMATOCRIT 37.9 % (37.0-47.0); HGB - HEMOGLOBIN 12.5 g/dL (12.0-16.0); LYMPHOCYTES # (AUTO) 1.9 10^3/uL (1.5-3.5); LYMPHOCYTES % (AUTO) 27.7 %; MEAN CORPUSCULAR HEMOGLOBIN 31.8 pg (27.0-31.0); MEAN CORPUSCULAR VOLUME 96.4 fL (81.0-99.0); MEAN PLATELET VOLUME 10.5 fL (7.9-10.8); MONOCYTES # (AUTO) 0.7 10^3/uL (0.0-1.0); MONOCYTES % (AUTO) 9.8 %; NEUTROPHILS # (AUTO) 3.8 10^3/uL (1.5-6.6); NEUTROPHILS % (AUTO) 57.1 %; PLT - PLATELET COUNT 219 10^3/uL (130-450); RED BLOOD COUNT 3.93 10^6/uL (4.20-5.40); RED CELL DISTRIBUTION WIDTH 13.8 % (12.0-15.0); WHITE BLOOD COUNT 6.7 x10^3/uL (4.8-10.8)
[2021-06-19 12:47] LABS: ALBUMIN 3.9 g/dL (3.2-5.5); ALBUMIN/GLOBULIN RATIO 1.4 (1.0-2.2); ALKALINE PHOSPHATASE 94 IU/L (42-121); ALT ALANINE AMINOTRANSFERASE 24 IU/L (10-60); AST ASPARTATE AMINOTRANSFERASE 24 IU/L (10-42); BILIRUBIN,TOTAL 0.7 mg/dL (0.2-1.0); BUN - BLOOD UREA NITROGEN 17 mg/dL (6-20); CALCIUM 9.6 mg/dL (8.5-10.3); CARBON DIOXIDE - CO2 28 mmol/L (21-32); CHLORIDE 96 mmol/L (101-111); CHOL/HDL RATIO 2.7 (<4.4); CHOLESTEROL 175 mg/dL; CREATININE 0.4 mg/dL (0.4-1.0); GFR - MDRD 154 (>89); GLUCOSE 87 mg/dL (70-100); HDL CHOLESTEROL 64 mg/dL; LDL CHOLESTEROL,CALCULATED 102 mg/dL; LDL/HDL RATIO 1.6 (<4.4); POTASSIUM 4.1 mmol/L (3.5-5.0); SODIUM 133 mmol/L (135-145); TOTAL PROTEIN 6.6 g/dL (6.7-8.2); TRIGLYCERIDES 47 mg/dL; VLDL CHOLESTEROL 9 mg/dL
== END 2021-06-19 23:59 | disposition home or self-care (01) ==
LOC: LAB.WCP 08:00
PROVIDERS: ATTEND Physician Assistant Medical
DX: E78.5 Hyperlipidemia, unspecified (principal); Z86.2 Personal history of diseases of the blood and blood-forming organs and certain disorders involving the immune mechanism
CPT/HCPCS: 36415; 80053; 80061; 83721; 85025

== ENCOUNTER 2021-07-01 09:49 | Outpatient (CLI) | payer MEDICARE, BC ==
[2021-07-01] MEDS ORDERED: IOPAMIDOL-300 100 ML VIAL ONE (10:21)
[2021-07-01] MEDS: IOPAMIDOL-300 100 ML VIAL IVP ONE (12:40)
--- NOTE | 2021-07-01 17:39 | CT Report ---
PROCEDURE: ANGIO CHEST W/WO INDICATIONS: DISSECTION OF THORACIC AORTA CONTRAST: IV CONTRAST: Isovue 300 ml: 80 PO CONTRAST: *NO PO CONTRAST TECHNIQUE: After the administration of intravenous contrast, 2 mm axial images were acquired from the pulmonary apices to the posterior costophrenic angles during the arterial phase. In addition, 1 mm lung kernel and 5 mm soft tissue kernel reconstructions were performed. 3-dimensional coronal oblique maximum int ensity projection (MIP) reformats, 8 mm axial MIP, and 5 mm coronal and sagittal MPR reformats were t hen performed through the thorax. For radiation dose reduction, the following was used: automated exp osure control, adjustment of mA and/or kV according to patient size. COMPARISON: 05/12/2020 FINDINGS: Image quality: Excellent. Aorta: Postoperative changes of median sternotomy and repair of a [place] type a aortic dissection. The ascending aorta measures 2.7 cm. There is normal branching of the great vessels with no stenosis. No evidence of contrast extravasation. The true lumen continues anteriorly and then medially termina ting above the renal arteries. The celiac trunk originates from the false lumen. The SMA and both kyleigh al arteries originate from the true lumen. There is contrast in the false lumen of the distal thoraci c aorta and suprarenal abdominal aorta possibly due to fenestration. LUNGS: The lungs are clear. No pleural effusions or pneumothorax. Central and peripheral airways are patent. Mediastinum: Heart size is normal, without pericardial effusion. No mediastinal or hilar adenopathy . Thoracic aorta is normal in caliber and enhancement. Esophagus is normal in caliber, without hiat al hernia. Bones and chest wall: No suspicious bony lesions. Ribs and thoracic spine appear intact throughout. No axillary or supraclavicular adenopathy. The thyroid is normal in size and there are no incident al findings. Bilateral breast implants are intact. Abdomen: Visualized upper abdominal solid organs appear normal in the early arterial phase of enhanc ement. IMPRESSION: 1. [place] type A aortic dissection status post repair with no evidence of complication. 2. Previously seen pleural effusions have resolved. Reviewed by: Edison Dumont on 07/01/2021 4:38 PM [facility] Approved by: Edison Dumont on 07/01/2021 4:38 PM [facility] Station ID: [id number]
== END 2021-07-01 09:50 | disposition home or self-care (01) ==
LOC: LAB 09:49
PROVIDERS: ATTEND Internal Medicine Cardiovascular Disease
DX: Z86.79 Personal history of other diseases of the circulatory system (principal); I10 Essential (primary) hypertension
CPT/HCPCS: 71275; Q9967; 80048

== ENCOUNTER 2022-02-07 08:00 | Outpatient (CLI) | payer MEDICARE, BC ==
[2022-02-07 12:21] LABS: BILIRUBIN,URINE NEGATIVE (NEGATIVE); GLUCOSE, URINE (UA) NEGATIVE (NEGATIVE); KETONES,URINE (UA) NEGATIVE (NEGATIVE); LEUKOCYTE ESTERASE, URINE NEGATIVE (NEGATIVE); NITRITE,URINE NEGATIVE (NEGATIVE); OCCULT BLOOD,URINE TRACE-INTA (NEGATIVE); PROTEIN,URINE NEGATIVE (NEGATIVE); UROBILINOGEN,URINE 0.2 (NORMAL) E.U./dL (NORMAL)
[2022-02-07 12:36] LABS: BACTERIA,URINE Few /HPF (None Seen); CLARITY,URINE CLEAR (CLEAR); RBC,URINE None Seen /HPF (0-5); SQUAMOUS EPITHELIAL CELL,UR RARE Squamous (<= Few); WBC,URINE 0-3 /HPF (0-5)
== END 2022-02-07 23:59 | disposition home or self-care (01) ==
LOC: LAB.WCP 08:00
PROVIDERS: ATTEND Physician Assistant Medical
DX: R31.9 Hematuria, unspecified (principal)
CPT/HCPCS: 81001; 87086

== ENCOUNTER 2022-09-20 07:06 | Outpatient (CLI) | payer MEDICARE, BC ==
[2022-09-20 12:25] LABS: ALBUMIN/GLOBULIN RATIO 1.5 (1.0-2.2); ALKALINE PHOSPHATASE 87 IU/L (42-121); ALT ALANINE AMINOTRANSFERASE 25 IU/L (10-60); AST ASPARTATE AMINOTRANSFERASE 20 IU/L (10-42); BILIRUBIN,TOTAL 0.6 mg/dL (0.2-1.0); BUN - BLOOD UREA NITROGEN 19 mg/dL (6-20); CALCIUM 9.8 mg/dL (8.5-10.3); CARBON DIOXIDE - CO2 29 mmol/L (21-32); CHLORIDE 100 mmol/L (101-111); CHOL/HDL RATIO 2.4 (<4.4); CHOLESTEROL 165 mg/dL; CREATININE 0.5 mg/dL (0.4-1.0); GFR - MDRD 118 (>89); GLUCOSE 98 mg/dL (70-100); HDL CHOLESTEROL 69 mg/dL; LDL CHOLESTEROL,CALCULATED 86 mg/dL; LDL/HDL RATIO 1.2 (<4.4); POTASSIUM 4.2 mmol/L (3.5-5.0); SODIUM 134 mmol/L (135-145); TOTAL PROTEIN 6.7 g/dL (6.7-8.2); TRIGLYCERIDES 48 mg/dL; VLDL CHOLESTEROL 10 mg/dL
== END 2022-09-20 07:07 | disposition home or self-care (01) ==
LOC: LAB.N 07:06
PROVIDERS: ATTEND Physician Assistant Medical
DX: E78.5 Hyperlipidemia, unspecified (principal)
CPT/HCPCS: 36415; 80053; 80061; 83721

== ENCOUNTER 2023-09-03 07:04 | Outpatient (CLI) | payer MEDICARE, BC ==
[2023-09-03 13:10] LABS: ALBUMIN 4.2 g/dL (3.2-5.5); ALBUMIN/GLOBULIN RATIO 1.6 (1.0-2.2); ALKALINE PHOSPHATASE 121 IU/L (42-121); ALT ALANINE AMINOTRANSFERASE 24 IU/L (10-60); AST ASPARTATE AMINOTRANSFERASE 18 IU/L (10-42); BILIRUBIN,TOTAL 0.7 mg/dL (0.2-1.0); BUN - BLOOD UREA NITROGEN 19 mg/dL (6-20); CALCIUM 10.1 mg/dL (8.5-10.3); CARBON DIOXIDE - CO2 30 mmol/L (21-32); CHLORIDE 99 mmol/L (101-111); CHOL/HDL RATIO 2.5 (<4.4); CHOLESTEROL 153 mg/dL; CREATININE 0.6 mg/dL (0.6-1.3); GFR - MDRD 96 (>89); GLUCOSE 98 mg/dL (74-104); HDL CHOLESTEROL 61 mg/dL; LDL CHOLESTEROL,CALCULATED 79 mg/dL; LDL/HDL RATIO 1.3 (<4.4); POTASSIUM 4.2 mmol/L (3.5-4.5); SODIUM 134 mmol/L (135-145); TOTAL PROTEIN 6.9 g/dL (6.4-8.9); TRIGLYCERIDES 66 mg/dL (48-352); VLDL CHOLESTEROL 13 mg/dL
[2023-09-03 13:12] LABS: THYROID STIMULATING HORMONE 3.33 uIU/mL (0.34-5.60)
== END 2023-09-03 07:05 | disposition home or self-care (01) ==
LOC: LAB.N 07:04
PROVIDERS: ATTEND Physician Assistant Medical
DX: E78.5 Hyperlipidemia, unspecified (principal); J44.9 Chronic obstructive pulmonary disease, unspecified
CPT/HCPCS: 36415; 80053; 80061; 83721; 84443

== ENCOUNTER 2023-09-15 09:49 | Outpatient (CLI) | payer MEDICARE, BC ==
[2023-09-15 10:14] LABS: CREATININE 0.6 mg/dL (0.6-1.3); POTASSIUM 4.3 mmol/L (3.5-4.5)
[2023-09-15] MEDS ORDERED: IOVERSOL 320 100 ML VIAL IVP ONE (11:23)
== END 2023-09-15 09:50 | disposition home or self-care (01) ==
LOC: LAB 09:49
PROVIDERS: ATTEND Internal Medicine Cardiovascular Disease
DX: Z98.890 Other specified postprocedural states (principal); Z86.79 Personal history of other diseases of the circulatory system
CPT/HCPCS: 36415; 80048

== ENCOUNTER 2024-02-17 08:00 | Outpatient (CLI) | payer MEDICARE, BC ==
[2024-02-17 19:20] LABS: BILIRUBIN,URINE NEGATIVE (NEGATIVE); GLUCOSE, URINE (UA) NEGATIVE (NEGATIVE); KETONES,URINE (UA) NEGATIVE (NEGATIVE); LEUKOCYTE ESTERASE, URINE NEGATIVE (NEGATIVE); NITRITE,URINE NEGATIVE (NEGATIVE); OCCULT BLOOD,URINE SMALL (NEGATIVE); PROTEIN,URINE NEGATIVE (NEGATIVE); UROBILINOGEN,URINE 0.2 (NORMAL) E.U./dL (NORMAL)
[2024-02-17 19:32] LABS: BACTERIA,URINE Rare /HPF (None Seen); CLARITY,URINE CLEAR (CLEAR); RBC,URINE 0-5 /HPF (0-5); SQUAMOUS EPITHELIAL CELL,UR RARE Squamous (<= Few); WBC,URINE 0-3 /HPF (0-5)
== END 2024-02-17 23:59 | disposition home or self-care (01) ==
LOC: LAB.WCP 08:00
PROVIDERS: ATTEND Physician Assistant Medical
DX: R31.9 Hematuria, unspecified (principal)
CPT/HCPCS: 81001; 87086

== ENCOUNTER 2024-02-21 12:41 | Inpatient (IN) | payer MEDICARE, BC ==
--- NOTE | 2024-02-21 12:52 | ED Physician Documentation ---
PD HPI ABD PAIN - Stated complaint Stated Complaint: GEN WEAKNESS,NAUSEA, - Chief complaint Chief Complaint: General - History obtained from History obtained from: Patient - History of Present Illness Timing - onset: How many weeks ago (1-2 weeks of thoracolumbar back pain radiating to back of thighs, mello right. history of back pain in the past. No recent injury. Then not feeling well with less appetite. Having increased confusion, CANTRELL, and now starting to bee off balance with walking.) Timing - details: Gradual onset, Still present Quality: Aching, Dull, Other Radiation: Lower back Improved by: No: Eating Worsened by: No: Eating Associated symptoms: Nausea. No: Fever, Diarrhea, Constipation, Dysuria Similar symptoms before: Has not had sx before Review of Systems Constitutional: denies: Fever, Chills, Myalgias Nose: denies: Congestion Respiratory: denies: Cough Psychiatric: reports: Insomnia (getting to sleep problem for past week or so, she thought confusion, weakness was related to that.) PD PAST MEDICAL HISTORY - Past Medical History Past Medical History: Yes Cardiovascular: Hypertension, Other (aortic dissection 2020, with chronic dissection present. 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 HEENT: Cataracts, Tonsil/Adenoidectomy - Present Medications Home Medications: Ambulatory Orders Medication Instructions Recorded Confirmed amLODIPine [Norvasc] 5 mg PO DAILY 08/31/16 02/21/24 Losartan Potassium 1 tab PO DAILY 02/21/24 02/21/24 Spironolactone [Aldactone] 0.5 tab PO DAILY 02/21/24 02/21/24 carvediloL [Coreg] 1 tab PO BID 02/21/24 02/21/24 - Allergies Allergies/Adverse Reactions: Allergies Allergy/AdvReac Type Severity Reaction Status Date / Time codeine Allergy Hives Verified 02/21/24 12:44 loratadine [From Claritin-D] Allergy Emesis Verified 02/21/24 12:44 meperidine HCl * Allergy Hives Verified 02/21/24 12:44 [From Demerol] pseudoephedrine sulfate * Allergy Emesis Verified 02/21/24 12:44 [From Liss-Rupal] - Social History Does the pt smoke?: Yes Smoking Status: Current every day smoker Does the pt drink ETOH?: Yes Does the pt have substance abuse?: No - Immunizations Immunizations are current?: Yes - POLST Patient has POLST: No PD ED PE NORMAL - General General: No: Alert and oriented X 3 (to person and place. Sluggish and somewhat blank look with questioning. ) - HEENT HEENT: Atraumatic, PERRL, EOMI - Neck Neck: Supple, no meningeal sign, No adenopathy - Cardiac Cardiac: RRR, No murmur - Respiratory Respiratory: No respiratory distress, Clear bilaterally - Abdomen Abdomen: Normal bowel sounds, Soft, Non distended, No organomegaly, Other (tender wih mild guarding upper abd epigastric area. Lower abd not tender. ) Results - Vitals Vitals: Vital Signs - 24 hr 02/21/24 02/21/24 02/21/24 12:45 12:49 14:49 Temperature 36.6 C Heart Rate 66 71 68 Respiratory 16 18 20 Rate Blood Pressure 159/67 H 161/74 H 168/74 H O2 Saturation 98 100 100 02/21/24 16:00 Temperature Heart Rate 85 Respiratory 20 Rate Blood Pressure 142/87 H O2 Saturation 95 Oxygen O2 Source Room air - Labs Labs: Laboratory Tests 02/21/24 02/21/24 02/21/24 13:31 13:31 13:58 WBC 7.5 RBC 3.88 L Hgb 12.8 Hct 36.8 L MCV 94.8 MCH 33.0 H MCHC 34.8 RDW 12.6 Plt Count 200 MPV 9.3 Neut # (Auto) 5.3 Lymph # (Auto) 1.4 L [place] # (Auto) 0.7 Eos # (Auto) 0.1 Baso # (Auto) 0.1 Absolute Nucleated RBC 0.00 Nucleated RBC % 0.0 Sodium Potassium Chloride Carbon Dioxide Anion Gap BUN Creatinine Estimated GFR (MDRD) Glucose Calcium Phosphorus Magnesium Total Bilirubin AST ALT Alkaline Phosphatase Total Protein Albumin Globulin Albumin/Globulin Ratio Triglycerides Lipase TSH Random Cortisol Urine Color YELLOW Urine Clarity CLEAR Urine pH 7.0 Ur Specific [place] 1.015 Urine Protein NEGATIVE Urine Glucose (UA) NEGATIVE Urine Ketones NEGATIVE Urine Occult Blood TRACE-INTA Urine Nitrite NEGATIVE Urine Bilirubin NEGATIVE Urine Urobilinogen 0.2 (NORMAL) Ur Leukocyte Esterase NEGATIVE Ur Microscopic Review NOT INDICATED Urine Culture Comments NOT INDICATED Urine Sodium 46.3 02/21/24 02/21/24 13:58 13:58 WBC RBC Hgb Hct MCV MCH MCHC RDW Plt Count MPV Neut # (Auto) Lymph # (Auto) [place] # (Auto) Eos # (Auto) Baso # (Auto) Absolute Nucleated RBC Nucleated RBC % Sodium 120 L* Potassium 4.4 Chloride 87 L Carbon Dioxide 29 Anion Gap 4.0 L BUN 13 Creatinine 0.5 L Estimated GFR (MDRD) 118 Glucose 114 H Calcium 10.1 Phosphorus 2.9 Magnesium 1.9 Total Bilirubin 0.5 AST 19 ALT 20 Alkaline Phosphatase 112 Total Protein 6.9 Albumin 4.3 Globulin 2.6 Albumin/Globulin Ratio 1.7 Triglycerides 57 Lipase 29 TSH 2.35 Random Cortisol 19.8 Urine Color Urine Clarity Urine pH Ur Specific [place] Urine Protein Urine Glucose (UA) Urine Ketones Urine Occult Blood Urine Nitrite Urine Bilirubin Urine Urobilinogen Ur Leukocyte Esterase Ur Microscopic Review Urine Culture Comments Urine Sodium - Rads (name of study) abd/pelvic CT Relevant Findings:: Prelim report reviewed (some hyperemia of bowel wall in lower abd, could be normal vs mild enteritis. No else acute. chronic descending aortic dissection. ), EMP independent interpretation of test head CT Relevant Findings:: Prelim report reviewed, EMP independent interpretation of test (no acute process. ) PD Medical Decision Making - ED course Complexity details: reviewed results (Pain lessened with meds. ), considered differential (upper abd pain initially with nausea and pow appetite, led to less intake. Still taking BP meds, including s;ironolactone. Presume led to low sodium. Had abd and back pain. Can assess with CT abd/pelvis. ), d/w patient ED course: Several different complaints for the last 1 to 2 weeks. Had been having flank pain primarily on the right and thoracolumbar pain. Some worse with movement. No noted injury per se. Also having nausea with decreased appetite over a week or 2 as well. Some discomfort with eating perhaps consistent with gastritis. Has been trying to maintain hydration. In the last several days to weeks she has noticed general weakness, increased nausea, sluggish thought process. Seen by her primary care a few days ago with no blood test. They did do a urine test without any signs of infection. Order to outpatient CT scan to evaluate for kidney stones etc. The patient had not yet gotten the CT scan outpatient. She is here with increased symptoms of the nausea and weakness. She states she has also had problems with sleep for the last couple of weeks and initially attributed her symptoms to insomnia and poor sleep hygiene. No apparent cause for the trouble sleeping. Here we did do the CT scan abdomen pelvis to evaluate for on the back pain. She is not having much abdominal pain per se but slightly tender epigastric. Consider some element of gastritis leading to the nausea. She is conversant and able to answer questions but is slightly sluggish on answers. Blood testing was also done to look for more general symptoms that she was having. The main abnormality was sodium of 120. Other chemistry panel fairly n ormal as was the blood count. We will check TSH as well. Initially was feeling the patient had volume depletion as part of her symptoms and was given an IV with a liter of saline. Upon result of the chemistry panel, we did decrease then to just to a lower volume normal saline. She is on a diuretic and had had nausea with less food intake but still trying to maintain hydration with fluids so it may be a delusional hyponatremia concurrent with a diuretic effect. I did do a CT of the head to evaluate for intracranial processes given some of the symptoms as well. No acute findings found there. I did talk with the hospitalist about the findings and he will assume care. Departure - Departure Disposition: [facility] DC/Xfer Clinical Impression: Nausea, Flank pain, Hyponatremia, Insomnia, Epigastric pain Condition: Stable Record reviewed to determine appropriate education?: Yes Discharge Date/Time: 02/21/24 17:40
[2024-02-21 13:50] LABS: BILIRUBIN,URINE NEGATIVE (NEGATIVE); CLARITY,URINE CLEAR (CLEAR); GLUCOSE, URINE (UA) NEGATIVE (NEGATIVE); KETONES,URINE (UA) NEGATIVE (NEGATIVE); LEUKOCYTE ESTERASE, URINE NEGATIVE (NEGATIVE); NITRITE,URINE NEGATIVE (NEGATIVE); OCCULT BLOOD,URINE TRACE-INTA (NEGATIVE); PROTEIN,URINE NEGATIVE (NEGATIVE); UROBILINOGEN,URINE 0.2 (NORMAL) E.U./dL (NORMAL)
[2024-02-21] MEDS: SODIUM CHLORIDE 0.9% 1,000 ML IV STA ×3 (13:51→20:50)
[2024-02-21 14:03] LABS: BASOPHILS # (AUTO) 0.1 10^3/uL (0.0-0.1); BASOPHILS % (AUTO) 0.7 %; EOSINOPHILS # (AUTO) 0.1 10^3/uL (0.0-0.7); EOSINOPHILS % (AUTO) 0.9 %; HCT - HEMATOCRIT 36.8 % (37.0-47.0); HGB - HEMOGLOBIN 12.8 g/dL (12.0-16.0); LYMPHOCYTES # (AUTO) 1.4 10^3/uL (1.5-3.5); LYMPHOCYTES % (AUTO) 18.2 %; MEAN CORPUSCULAR HGB CONC 34.8 g/dL (32.0-36.0); MEAN CORPUSCULAR VOLUME 94.8 fL (81.0-99.0); MEAN PLATELET VOLUME 9.3 fL (7.9-10.8); MONOCYTES # (AUTO) 0.7 10^3/uL (0.0-1.0); MONOCYTES % (AUTO) 9.3 %; NEUTROPHILS # (AUTO) 5.3 10^3/uL (1.5-6.6); NEUTROPHILS % (AUTO) 70.5 %; PLT - PLATELET COUNT 200 10^3/uL (130-450); RED BLOOD COUNT 3.88 10^6/uL (4.20-5.40); RED CELL DISTRIBUTION WIDTH 12.6 % (12.0-15.0); WHITE BLOOD COUNT 7.5 x10^3/uL (4.8-10.8)
[2024-02-21 14:19] LABS: MAGNESIUM 1.9 mg/dL (1.7-2.3); PHOSPHORUS 2.9 mg/dL (2.5-5.0)
[2024-02-21 14:21] LABS: ALBUMIN 4.3 g/dL (3.2-5.5); ALBUMIN/GLOBULIN RATIO 1.7 (1.0-2.2); BILIRUBIN,TOTAL 0.5 mg/dL (0.2-1.0); CALCIUM 10.1 mg/dL (8.5-10.3); CREATININE 0.5 mg/dL (0.6-1.3); POTASSIUM 4.4 mmol/L (3.5-4.5); TOTAL PROTEIN 6.9 g/dL (6.4-8.9)
[2024-02-21 14:31] LABS: THYROID STIMULATING HORMONE 2.35 uIU/mL (0.34-5.60)
[2024-02-21] MEDS ORDERED: iohexoL-300 100 ML VIAL ONE (15:06)
--- NOTE | 2024-02-21 16:20 | CT Report ---
PROCEDURE: Head WO INDICATIONS: confused, weak TECHNIQUE: Noncontrast 4.5 mm thick angled axial sections acquired from the foramen magnum to the vertex. For r adiation dose reduction, the following was used: automated exposure control, adjustment of mA and/or kV according to patient size. COMPARISON: None. FINDINGS: Image quality: Excellent. CSF spaces: Basal cisterns are patent. No extra-axial fluid collections. Ventricles are normal in size and shape. Brain: No midline shift. No intracranial masses or hemorrhage. Delgado-white matter interface is norm al. Patchy periventricular and subcortical white matter hypoattenuation is consistent with the seque la of microangiopathy. Skull and face: Calvarium and visualized facial bones are intact, without suspicious lesions. Sinuses: Visualized sinuses and mastoids are clear. IMPRESSION: No acute intracranial pathology. Reviewed by: Zenobia Orta MD on 02/21/2024 3:19 PM [facility] Approved by: Zenobia Orta MD on 02/21/2024 3:19 PM [facility] Station ID: [id number]
--- NOTE | 2024-02-21 16:26 | CT Report ---
PROCEDURE: Abdomen/Pelvis W INDICATIONS: nausea; upper abd/flank pain CONTRAST: 100ml omni 300 TECHNIQUE: After the administration of intravenous contrast, a CT scan of the abdomen and pelvis was performed. Images were recorded and evaluated at appropriate window settings. Reformats: coronal and sagittal. F or radiation dose reduction, the following was used: automated exposure control, adjustment of mA and /or kV according to patient size. COMPARISON: None. FINDINGS: Image quality: Diagnostic. Lower chest: Unremarkable. Liver: No solid mass. Gallbladder: Surgically absent. Biliary tree: No intrahepatic or extrahepatic dilation, accounting for age. Spleen: No splenomegaly. Pancreas: No pancreatic ductal dilation. Adrenals: No adrenal nodule. Kidneys and ureters: No hydronephrosis. No renal cystic lesion which requires follow up. No solid mas s There is a 5.4 cm simple right renal cyst. Stomach, bowel and peritoneum: Bowel is of normal caliber without obstruction. Several loops of small bowel within the pelvis demonstrate mild hyperemia of the wall with intraluminal fluid. There is a s mall amount of pelvic free fluid. Numerous sigmoid diverticula are shown without associated inflammat ion. Lymph nodes: No central or retroperitoneal adenopathy. Vessels: Again seen is a descending aortic dissection which is not significantly changed. The dissect ion ends just distal to the SMA origin. Aortic atherosclerosis is present. Patent portal vein. PELVIS Reproductive organs: Unremarkable. Bladder: No abnormal wall thickening, accounting for underdistention. Pelvic lymph nodes: No pelvic adenopathy by size criteria. Bones: No aggressive osseous abnormality. Other: No significant ventral or inguinal hernia. IMPRESSION: Constellation of findings which can be seen in setting of enteritis or may be normal for this patient . Unchanged aortic dissection. Reviewed by: Zenobia Orta MD on 02/21/2024 3:25 PM [facility] Approved by: Zenobia Orta MD on 02/21/2024 3:25 PM [facility] Station ID: [id number]
[2024-02-21] MEDS ORDERED: ONDANSETRON 4 MG/2 ML VIAL IVP PRN (17:22)
[2024-02-21] MEDS ORDERED: ZOLPIDEM 5 MG TABLET PO PRN (17:22)
[2024-02-21] MEDS ORDERED: ACETAMINOPHEN 325 MG TABLET PO PRN (17:22)
[2024-02-21] MEDS ORDERED: SODIUM CHLORIDE FLUSH 0.9% 10 ML SYRINGE IVP PRN (17:22)
--- NOTE | 2024-02-21 17:39 | HISTORY & PHYSICAL EXAMINATION ---
Chief Complaint - Chief Complaint Chief Complaint: I feel bad History of Present Illness - Admitted From Admitted From:: [facility] Emergency Department - History Obtained From Records Reviewed: EMR History obtained from: Patient Exam Limitations: None - History of Present Illness HPI Comment/Other: Reva Segal is an 83 year old with a history of hypertension, chronic hyponatremia around 132, Madan A aortic dissection in 2020 status postsurgical repair at [facility] who presents with various symptoms. The patient indicates that for the past couple weeks she has been having problems with insomnia, nausea, decreased appetite, increased generalized weakness and in the past week or so been feeling increasingly confused and "foggy". She denies having any vomiting and indicates she had been constipated but occasionally uses milk of magnesia which causes some liquid bowel movements and abdominal cramps. She denies any ongoing diarrhea but recently has been having some left flank pain that she went to her PCP for these issues. Urinalysis in the office a couple days ago showed blood and an outpatient CT scan was ordered to evaluate for kidney stones. Over the past couple days she has had increasing generalized weakness and disorientation, thus she decided to come to the emergency department for further evaluation. She denies having any fevers, chills, chest pain, cough, dyspnea, orthopnea, PND, current abdominal pain, melena. She does indicate that she has polyuria and she has been drinking 5-6 eight ounce glasses of water per day and usually brings bottled water with her wherever she goes. In the emergency department her vitals were unremarkable and her mentation seems slightly slowed however she was alert and oriented without any focal neurologic deficit. A CT of her head was unremarkable and a CT of her abdomen/pelvis which showed her chronic aortic dissection findings (no acute pathology) along with findings that could represent enteritis versus a normal finding for her, but no significant renal issues aside from a 5.4 cm simple right renal cyst. Her labs however showed a serum sodium of 120, whereas her baseline hyponatremia is usually around 132. She was given 1 L of normal saline in the emergency department then admitted for further care and treatment of her hyponatremia. Of note she has been hospitalized in the past with gastroenteritis and hyponatremia, with her hyponatremia improving with fluid resuscitation. There is a note that indicates she could potentially have SIADH but that was not formally diagnosed. The patient denies having any recent medication changes and currently takes amlodipine 5 mg at nighttime, Coreg 25 mg twice daily, losartan 100 mg daily and spironolactone 12.5 mg daily. 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 - Past Surgical History General: reports: Cholecystectomy, Appendectomy /CONVERSION MAN: reports: Hysterectomy Cardiovascular: reports: Vascular surgery (Aortic dissection repair 2019) HEENT: reports: Cataracts, Tonsil/Adenoidectomy - Family & Social History Family History: Other family: Hypertension - Substance History Use: Uses substance without health or social issues: Tobacco - POLST Patient has POLST: No Meds/Allgy - Home Medications Home Medications: Ambulatory Orders Medication Instructions Recorded Confirmed amLODIPine [Norvasc] 5 mg PO DAILY 08/31/16 02/21/24 Losartan Potassium 1 tab PO DAILY 02/21/24 02/21/24 Spironolactone [Aldactone] 0.5 tab PO DAILY 02/21/24 02/21/24 carvediloL [Coreg] 1 tab PO BID 02/21/24 02/21/24 - Allergies Allergies/Adverse Reactions: Allergies Allergy/AdvReac Type Severity Reaction Status Date / Time codeine Allergy Hives Verified 02/21/24 12:44 loratadine [From Claritin-D] Allergy Emesis Verified 02/21/24 12:44 meperidine HCl * Allergy Hives Verified 02/21/24 12:44 [From Demerol] pseudoephedrine sulfate * Allergy Emesis Verified 02/21/24 12:44 [From Claritin-D] Review of Systems - Constitutional Constitutional: reports: Fatigue, Malaise, Weakness, Poor appetite. denies: Fever, Chills, Weight loss - Eyes Eyes: denies: Blurred vision - Ears, Nose & Throat Ears, Nose & Throat: denies: Tinnitus - Cardiovascular Cariovascular: denies: Irregular heart rate, Palpitations, Chest pain, Lightheadedness, Exertional dyspnea - Respiratory Respiratory: denies: Cough, Sputum production, Orthopnea - Gastrointestinal Gastrointestinal: reports: Abdominal pain, Nausea. denies: Diarrhea, Black stools, Bloody stools, Vomiting - Genitourinary Genitourinary: reports: Frequency, Flank pain. denies: Dysuria, Hematuria - Musculoskeletal Musculoskeletal: reports: Muscle aches - Integumentary Integumentary: denies: Rash - Neurological Neurological: reports: General weakness, Headache. denies: Focal weakness, Dizziness, Numbness - Endocrine Endocrine: reports: Polyuria, Polydypsia. denies: Polyphagia Exam - Vital Signs Reviewed Vital Signs: Yes Vital Signs: Vital Signs x48h Temp Pulse Resp BP Pulse Ox 02/21/24 16:00 85 20 142/87 H 95 02/21/24 14:49 68 20 168/74 H 100 02/21/24 12:49 71 18 161/74 H 100 02/21/24 12:45 36.6 C 66 16 159/67 H 98 - Physical Exam General Appearance: positive: Other (No acute distress, appears older than stated age. Slow to answer some questions but appropriate and oriented x 3.) Eyes Bilateral: positive: Normal inspection, PERRL, EOMI ENT: positive: ENT inspection nml, Pharynx nml, No signs of dehydration Neck: positive: Nml inspection, Thyroid nml, No JVD, Trachea midline Respiratory: positive: No respiratory distress, Breath sounds nml. negative: Wheezes, Rales, Rhonchi Cardiovascular: positive: Regular rate & rhythm, No gallop, Systolic murmur (Faint 2/6 systolic murmur at right upper sternal border) Peripheral Pulses: positive: 2+ Abdomen: positive: Non-tender, No organomegaly, Nml bowel sounds, No distention Back: positive: Nml inspection. negative: CVA tenderness (R), CVA tenderness (L) Skin: positive: Color nml, No rash, Warm, Dry Extremities: positive: Pedal edema (1+ pitting edema bilaterally) Neurologic/Psychiatric: positive: Oriented x3, CN's nml (2-12), Motor nml, Sensation nml Babinski Reflex: Right: Down, Left: Down Sepsis Event Note (H) - Evaluation Current Stage of Sepsis: Ruled out Conclusion/Plan - Problem List (1) Hyponatremia Conclusion/Plan: She has acute on chronic hyponatremia, with the etiology of her acute component not entirely clear at this time. The most likely etiology is that she is not drinking excess water and has not been having good solute intake given her poor appetite. There is however the possibility of underlying SIADH. -Will check TSH, cortisol, triglyceride level and urine sodium. -Unable to obtain serum/urine osmolality as this is a send out lab that takes several days to return and would not be clinically relevant at that time. -Will recheck sodium level in a couple hours as she had just received 1 L normal saline bolus in the ER. -Will place on normal saline at 50 cc/h and start on 1500 mL fluid restricted diet. (2) Essential hypertension Conclusion/Plan: Currently she is above goal. -Holding home losartan and spironolactone given hyponatremia. -Resume home carvedilol 25 mg twice daily and amlodipine 5 mg every afternoon. -P.o. hydralazine available as needed. (3) History of aortic dissection Conclusion/Plan: She presented in 2019 to the emergency department with chest pain and back pain and a CT scan was found to have a Madan type A aortic dissection. She was sent to [facility] where she underwent operative repair. She has since followed with a fur puller due to her hypertension but she denies having any primary cardiac issues. She recently stopped going to the fur puller as he indicated she did not need to see him and can follow-up with her PCP for blood pressure management. -Her admission CT scan does show chronic changes from her aortic dissection, but she has no acute pathology. -Treat blood pressure as noted above. (4) Flank pain Conclusion/Plan: She reports having left-sided flank pain intermittently for the past several days and reportedly had blood in her urine at her PCP office. CT of her abdomen here shows no problem on the left and no indication of nephrolithiasis. Her admission urinalysis was likewise negative. -Unclear if she maybe passed a stone several days ago however no acute pathology noted currently. -Will monitor for now. (5) Insomnia Conclusion/Plan: She reports significant problems with insomnia over the past 1 to 2 weeks, which may be a side effect from her hyponatremia. CT head is unremarkable. -Ambien as needed (6) Nausea Conclusion/Plan: Her nausea and poor appetite is likely compounded by her hyponatremia. -Treat hyponatremia as noted above. -As needed Zofran available. - Lab Results Lab results reviewed: Yes Fish Bones: 02/21/24 13:58 02/21/24 13:58 - Diagnostic Imaging Results Diagnostic Imaging Results: positive: Final report reviewed Diagnostic Imaging Results Comments: CT Abdomen/Pelvis: Constellation of findings which can be seen in enteritis or may be normal for this patient. Unchanged aortic dissection. CT Head: No acute intracranial pathology.
[2024-02-21] MEDS ORDERED: hydrALAZINE 25 MG TABLET PO PRN (17:56)
[2024-02-21] MEDS: SODIUM CHLORIDE 0.9% 1,000 ML IV SCH (18:03)
[2024-02-21] MEDS: iohexoL-300 100 ML VIAL IVP ONE (18:30)
[2024-02-21] MEDS: amLODIPine 5 MG TABLET PO SCH (21:10)
[2024-02-21] MEDS: carvediloL 12.5 MG TABLET PO SCH (21:10)
[2024-02-22] MEDS: SODIUM CHLORIDE FLUSH 0.9% 10 ML SYRINGE IVP SCH (01:20)
[2024-02-22 05:46] LABS: BASOPHILS # (AUTO) 0.1 10^3/uL (0.0-0.1); BASOPHILS % (AUTO) 0.7 %; EOSINOPHILS # (AUTO) 0.1 10^3/uL (0.0-0.7); EOSINOPHILS % (AUTO) 0.8 %; HCT - HEMATOCRIT 34.6 % (37.0-47.0); HGB - HEMOGLOBIN 11.8 g/dL (12.0-16.0); LYMPHOCYTES # (AUTO) 1.4 10^3/uL (1.5-3.5); LYMPHOCYTES % (AUTO) 18.4 %; MEAN CORPUSCULAR HEMOGLOBIN 32.3 pg (27.0-31.0); MEAN CORPUSCULAR HGB CONC 34.1 g/dL (32.0-36.0); MEAN CORPUSCULAR VOLUME 94.8 fL (81.0-99.0); MEAN PLATELET VOLUME 9.3 fL (7.9-10.8); MONOCYTES # (AUTO) 0.7 10^3/uL (0.0-1.0); MONOCYTES % (AUTO) 9.2 %; NEUTROPHILS # (AUTO) 5.3 10^3/uL (1.5-6.6); NEUTROPHILS % (AUTO) 70.2 %; PLT - PLATELET COUNT 193 10^3/uL (130-450); RED BLOOD COUNT 3.65 10^6/uL (4.20-5.40); RED CELL DISTRIBUTION WIDTH 12.7 % (12.0-15.0); WHITE BLOOD COUNT 7.5 x10^3/uL (4.8-10.8)
[2024-02-22 06:09] LABS: CALCIUM 9.4 mg/dL (8.5-10.3); CREATININE 0.4 mg/dL (0.6-1.3); MAGNESIUM 1.6 mg/dL (1.7-2.3); POTASSIUM 3.8 mmol/L (3.5-4.5)
[2024-02-22] MEDS: SODIUM CHLORIDE 0.9% 1,000 ML IV SCH (08:25)
[2024-02-22] MEDS: ENOXAPARIN 40 MG/0.4 ML SYRINGE SUBQ SCH (08:26)
[2024-02-22] MEDS: MAGNESIUM OXIDE 400 MG TABLET PO SCH (08:51)
--- NOTE | 2024-02-22 12:16 | PROVIDER PROGRESS NOTE ---
Subjective - Prog Note Date Prog Note Date: 02/22/24 Prog Note Time: 12:06 - Subjective Pt reports feeling: Improved Subjective: No acute events overnight. She reports feeling overall improved however she still feels "foggy" but denies any confusion, neurologic deficits, headaches, vomiting, diarrhea. Her sodium level has been improving and is up to 124 this morning from 120 at admission. Objective - Vital Signs/Intake & Output Reviewed Vital Signs: Yes Vital Signs: Vital Signs x48h Temp Pulse Resp BP Pulse Ox 02/22/24 08:00 36.5 C 73 18 169/91 H 96 02/22/24 04:33 36.3 C L 85 18 159/89 H 97 Intake & Output: Intake & Output 02/19/24 02/20/24 02/21/24 02/22/24 23:59 23:59 23:59 23:59 Intake Total 2250 869.167 Output Total 200 950 Balance 2050 -80.833 - Objective General Appearance: positive: No acute distress, Alert Eyes Bilateral: positive: Normal inspection, PERRL, EOMI ENT: positive: ENT inspection nml, Pharynx nml, No signs of dehydration Neck: positive: Nml inspection, Thyroid nml, No JVD, Trachea midline Respiratory: positive: No respiratory distress, Breath sounds nml. negative: Wheezes, Rales, Rhonchi Cardiovascular: positive: Regular rate & rhythm, No gallop, Systolic murmur (Faint 2/6 systolic murmur at the right upper sternal border) Abdomen: positive: Non-tender, No organomegaly, Nml bowel sounds, No distention Back: positive: Nml inspection Skin: positive: Color nml, No rash, Warm, Dry Extremities: positive: Nml appearance, No pedal edema Neurologic/Psychiatric: positive: Oriented x3, CN's nml (2-12), Motor nml, Sensation nml - Lab Results Fish Bones: 02/22/24 05:15 02/22/24 10:48 Other Labs: Lab Results x24hrs 02/22/24 02/22/24 02/22/24 Range/Units 10:48 05:15 05:15 WBC 7.5 (4.8-10.8) x10^3/uL RBC 3.65 L (4.20-5.40) 10^6/uL Hgb 11.8 L (12.0-16.0) g/dL Hct 34.6 L (37.0-47.0) % MCV 94.8 (81.0-99.0) fL MCH 32.3 H (27.0-31.0) pg MCHC 34.1 (32.0-36.0) g/dL RDW 12.7 (12.0-15.0) % Plt Count 193 (130-450) 10^3/uL MPV 9.3 (7.9-10.8) fL Neut # (Auto) 5.3 (1.5-6.6) 10^3/uL Lymph # (Auto) 1.4 L (1.5-3.5) 10^3/uL [place] # (Auto) 0.7 (0.0-1.0) 10^3/uL Eos # (Auto) 0.1 (0.0-0.7) 10^3/uL Baso # (Auto) 0.1 (0.0-0.1) 10^3/uL Absolute Nucleated RBC 0.00 x10^3/uL Nucleated RBC % 0.0 /100WBC Sodium 124 L 124 L (135-145) mmol/L Potassium 3.8 (3.5-4.5) mmol/L Chloride 93 L (101-111) mmol/L Carbon Dioxide 27 (21-32) mmol/L Anion Gap 4.0 L (6-13) BUN 7 (6-20) mg/dL Creatinine 0.4 L (0.6-1.3) mg/dL Estimated GFR (MDRD) 152 (>89) Glucose 93 (74-104) mg/dL Calcium 9.4 (8.5-10.3) mg/dL Phosphorus (2.5-5.0) mg/dL Magnesium 1.6 L (1.7-2.3) mg/dL Total Bilirubin (0.2-1.0) mg/dL AST (10-42) IU/L ALT (10-60) IU/L Alkaline Phosphatase (42-121) IU/L Total Protein (6.4-8.9) g/dL Albumin (3.2-5.5) g/dL Globulin (2.1-4.2) g/dL Albumin/Globulin Ratio (1.0-2.2) Triglycerides mg/dL Lipase (11-82) U/L TSH (0.34-5.60) uIU/mL Random Cortisol ug/dL Urine Color Urine Clarity (CLEAR) Urine pH (5.0-7.5) PH Ur Specific Clarence (1.002-1.030) Urine Protein (NEGATIVE) mg/dL Urine Glucose (UA) (NEGATIVE) mg/dL Urine Ketones (NEGATIVE) mg/dL Urine Occult Blood (NEGATIVE) Urine Nitrite (NEGATIVE) Urine Bilirubin (NEGATIVE) Urine Urobilinogen (NORMAL) E.U./dL Ur Leukocyte Esterase (NEGATIVE) Ur Microscopic Review Urine Culture Comments Urine Sodium mmol/L 02/21/24 02/21/24 02/21/24 Range/Units 22:03 13:58 13:58 WBC (4.8-10.8) x10^3/uL RBC (4.20-5.40) 10^6/uL Hgb (12.0-16.0) g/dL Hct (37.0-47.0) % MCV (81.0-99.0) fL MCH (27.0-31.0) pg MCHC (32.0-36.0) g/dL RDW (12.0-15.0) % Plt Count (130-450) 10^3/uL MPV (7.9-10.8) fL Neut # (Auto) (1.5-6.6) 10^3/uL Lymph # (Auto) (1.5-3.5) 10^3/uL [place]atham # (Auto) (0.0-1.0) 10^3/uL Eos # (Auto) (0.0-0.7) 10^3/uL Baso # (Auto) (0.0-0.1) 10^3/uL Absolute Nucleated RBC x10^3/uL Nucleated RBC % /100WBC Sodium 125 L 120 L* (135-145) mmol/L Potassium 4.4 (3.5-4.5) mmol/L Chloride 87 L (101-111) mmol/L Carbon Dioxide 29 (21-32) mmol/L Anion Gap 4.0 L (6-13) BUN 13 (6-20) mg/dL Creatinine 0.5 L (0.6-1.3) mg/dL Estimated GFR (MDRD) 118 (>89) Glucose 114 H (74-104) mg/dL Calcium 10.1 (8.5-10.3) mg/dL Phosphorus 2.9 (2.5-5.0) mg/dL Magnesium 1.9 (1.7-2.3) mg/dL Total Bilirubin 0.5 (0.2-1.0) mg/dL AST 19 (10-42) IU/L ALT 20 (10-60) IU/L Alkaline Phosphatase 112 (42-121) IU/L Total Protein 6.9 (6.4-8.9) g/dL Albumin 4.3 (3.2-5.5) g/dL Globulin 2.6 (2.1-4.2) g/dL Albumin/Globulin Ratio 1.7 (1.0-2.2) Triglycerides 57 mg/dL Lipase 29 (11-82) U/L TSH 2.35 (0.34-5.60) uIU/mL Random Cortisol 19.8 ug/dL Urine Color Urine Clarity (CLEAR) Urine pH (5.0-7.5) PH Ur Specific Clarence (1.002-1.030) Urine Protein (NEGATIVE) mg/dL Urine Glucose (UA) (NEGATIVE) mg/dL Urine Ketones (NEGATIVE) mg/dL Urine Occult Blood (NEGATIVE) Urine Nitrite (NEGATIVE) Urine Bilirubin (NEGATIVE) Urine Urobilinogen (NORMAL) E.U./dL Ur Leukocyte Esterase (NEGATIVE) Ur Microscopic Review Urine Culture Comments Urine Sodium mmol/L 02/21/24 02/21/24 02/21/24 Range/Units 13:58 13:31 13:31 WBC 7.5 (4.8-10.8) x10^3/uL RBC 3.88 L (4.20-5.40) 10^6/uL Hgb 12.8 (12.0-16.0) g/dL Hct 36.8 L (37.0-47.0) % MCV 94.8 (81.0-99.0) fL MCH 33.0 H (27.0-31.0) pg MCHC 34.8 (32.0-36.0) g/dL RDW 12.6 (12.0-15.0) % Plt Count 200 (130-450) 10^3/uL MPV 9.3 (7.9-10.8) fL Neut # (Auto) 5.3 (1.5-6.6) 10^3/uL Lymph # (Auto) 1.4 L (1.5-3.5) 10^3/uL [place] # (Auto) 0.7 (0.0-1.0) 10^3/uL Eos # (Auto) 0.1 (0.0-0.7) 10^3/uL Baso # (Auto) 0.1 (0.0-0.1) 10^3/uL Absolute Nucleated RBC 0.00 x10^3/uL Nucleated RBC % 0.0 /100WBC Sodium (135-145) mmol/L Potassium (3.5-4.5) mmol/L Chloride (101-111) mmol/L Carbon Dioxide (21-32) mmol/L Anion Gap (6-13) BUN (6-20) mg/dL Creatinine (0.6-1.3) mg/dL Estimated GFR (MDRD) (>89) Glucose (74-104) mg/dL Calcium (8.5-10.3) mg/dL Phosphorus (2.5-5.0) mg/dL Magnesium (1.7-2.3) mg/dL Total Bilirubin (0.2-1.0) mg/dL AST (10-42) IU/L ALT (10-60) IU/L Alkaline Phosphatase (42-121) IU/L Total Protein (6.4-8.9) g/dL Albumin (3.2-5.5) g/dL Globulin (2.1-4.2) g/dL Albumin/Globulin Ratio (1.0-2.2) Triglycerides mg/dL Lipase (11-82) U/L TSH (0.34-5.60) uIU/mL Random Cortisol ug/dL Urine Color YELLOW Urine Clarity CLEAR (CLEAR) Urine pH 7.0 (5.0-7.5) PH Ur Specific Clarence 1.015 (1.002-1.030) Urine Protein NEGATIVE (NEGATIVE) mg/dL Urine Glucose (UA) NEGATIVE (NEGATIVE) mg/dL Urine Ketones NEGATIVE (NEGATIVE) mg/dL Urine Occult Blood TRACE-INTA (NEGATIVE) Urine Nitrite NEGATIVE (NEGATIVE) Urine Bilirubin NEGATIVE (NEGATIVE) Urine Urobilinogen 0.2 (NORMAL) (NORMAL) E.U./dL Ur Leukocyte Esterase NEGATIVE (NEGATIVE) Ur Microscopic Review NOT INDICATED Urine Culture Comments NOT INDICATED Urine Sodium 46.3 mmol/L Sepsis Event Note (H) - Evaluation Current Stage of Sepsis: Ruled out Assessment/Plan - Problem List (1) Hyponatremia Impression: She has acute on chronic hyponatremia. The most likely etiology is that she is drinking excess water and has not been having good solute intake given her poor appetite. There is however the possibility of underlying SIADH. -TSH, cortisol, triglyceride unremarkable. Urine sodium is 46 and urine specific gravity is 1.015. -Unable to obtain serum/urine osmolality as this is a send out lab that takes several days to return and would not be clinically relevant at that time. -Continue 1500 ml fluid restriction. -Sodium level is improving at an appropriate rate. Continue normal saline, but increase from 50 to 75 cc/hr. (2) Essential hypertension Impression: Uncontrolled. -Holding home spironolactone given hyponatremia; would discontinue this at discharge. -Continue home carvedilol 25 mg twice daily and amlodipine 5 mg every afternoon. -Resume Losartan 100 mg daily as this is not likely the cause of her hy ponatremia. -P.o. hydralazine available as needed. (3) History of aortic dissection Impression: She presented in 2019 to the emergency department with chest pain and back pain and a CT scan was found to have a [place] type A aortic dissection. She was sent to [facility] where she underwent operative repair. 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 She recently stopped going to the supervisor sintering plant as he indicated she did not need to see him and can follow-up with her PCP for blood pressure management. -Her admission CT scan does show chronic changes from her aortic dissection, but she has no acute pathology. -Treat blood pressure as noted above. (4) Flank pain Impression: She reports having left-sided flank pain intermittently for the past several days and reportedly had blood in her urine at her PCP office. CT of her abdomen here shows no problem on the left and no indication of nephrolithiasis. Her admission urinalysis was likewise negative. -Unclear if she maybe passed a stone several days ago however no acute pathology noted currently. -Will monitor for now. (5) Insomnia Impression: She reports significant problems with insomnia over the past 1 to 2 weeks, which may be a side effect from her hyponatremia. CT head is unremarkable. -Ambien as needed while in the hospital. (6) Nausea Impression: Her nausea and poor appetite is likely compounded by her hyponatremia. -Treat hyponatremia as noted above. -As needed Zofran available. -Improving. (7) Hypomagnesemia Impression: Will place on magnesium oxide 400 mg BID for now.
--- NOTE | 2024-02-22 13:34 | PHARMACY PROGRESS NOTE ---
- Best Possible Medication History Admit Date and Time: 02/22/24 1004 Medication History completed: Yes Patient Interview: Completed Secondary Source(s): Insurance records (per prescription insurance records and patient interview) As the person ultimately responsible for medication therapy, providers are able to order a medication from an existing home medication list in [facility] via the "Reconcile Routine" prior to Confirmation of that medication by customer support agent. Such practice is discouraged except when the physician, in their clinical judgment, deems that a medical need exists for a medication without regard to previous use.
[2024-02-22] MEDS: carvediloL 12.5 MG TABLET PO SCH (17:02)
[2024-02-22] MEDS: amLODIPine 5 MG TABLET PO SCH (17:02)
[2024-02-23 05:35] LABS: BASOPHILS # (AUTO) 0.1 10^3/uL (0.0-0.1); EOSINOPHILS # (AUTO) 0.1 10^3/uL (0.0-0.7); EOSINOPHILS % (AUTO) 1.8 %; HGB - HEMOGLOBIN 11.3 g/dL (12.0-16.0); LYMPHOCYTES # (AUTO) 1.5 10^3/uL (1.5-3.5); LYMPHOCYTES % (AUTO) 23.7 %; MEAN CORPUSCULAR HGB CONC 33.2 g/dL (32.0-36.0); MEAN CORPUSCULAR VOLUME 96.3 fL (81.0-99.0); MEAN PLATELET VOLUME 9.3 fL (7.9-10.8); MONOCYTES # (AUTO) 0.6 10^3/uL (0.0-1.0); MONOCYTES % (AUTO) 10.4 %; NEUTROPHILS # (AUTO) 3.9 10^3/uL (1.5-6.6); NEUTROPHILS % (AUTO) 62.5 %; PLT - PLATELET COUNT 191 10^3/uL (130-450); RED BLOOD COUNT 3.53 10^6/uL (4.20-5.40); RED CELL DISTRIBUTION WIDTH 12.7 % (12.0-15.0); WHITE BLOOD COUNT 6.2 x10^3/uL (4.8-10.8)
[2024-02-23 06:03] LABS: CALCIUM 9.5 mg/dL (8.5-10.3); CREATININE 0.4 mg/dL (0.6-1.3); POTASSIUM 3.7 mmol/L (3.5-4.5)
[2024-02-23] MEDS: LOSARTAN 50 MG TABLET PO SCH (08:32)
[2024-02-23] MEDS: SODIUM CHLORIDE 1 GM TABLET PO SCH (08:32)
[2024-02-23] MEDS: MECLIZINE 12.5 MG TABLET PO ONE (10:12)
[2024-02-23] MEDS: LOPERAMIDE 2 MG CAPSULE PO PRN (10:12)
--- NOTE | 2024-02-23 11:10 | PROVIDER PROGRESS NOTE ---
Subjective - Prog Note Date Prog Note Date: 02/23/24 Prog Note Time: 11:08 - Subjective Pt reports feeling: Improved Subjective: No acute events overnight. She reports feeling overall improved to a certain extent however she still feels dizzy at times with standing but also indicates she feels dizziness whenever she turns her head to the right or left. Denies true vertigo and has no other neurologic symptoms. She did report having some diarrhea overnight but that is improving this morning. Her sodium level has improved to 126, which is slowly improving but going in the right direction. Her baseline sodium level is typically 130-132. Objective - Vital Signs/Intake & Output Vital Signs: Vital Signs x48h Temp Pulse Resp BP Pulse Ox 02/23/24 08:32 37.2 C 77 18 143/81 H 95 02/23/24 04:15 36.3 C L 77 18 148/86 H 97 Intake & Output: Intake & Output 02/20/24 02/21/24 02/22/24 02/23/24 23:59 23:59 23:59 23:59 Intake Total 2250 2254.167 2390 Output Total 200 1700 700 Balance 2050 519.775 7307 - Objective General Appearance: positive: No acute distress, Alert Eyes Bilateral: positive: Normal inspection, PERRL, EOMI ENT: positive: ENT inspection nml, Pharynx nml, No signs of dehydration Neck: positive: Nml inspection, Thyroid nml, No JVD, Trachea midline Respiratory: positive: No respiratory distress, Breath sounds nml. negative: Wheezes, Rales, Rhonchi Cardiovascular: positive: Regular rate & rhythm, No gallop, Systolic murmur (Faint 2/6 systolic murmur at the right upper sternal border) Abdomen: positive: Non-tender, No organomegaly, Nml bowel sounds, No distention Back: positive: Nml inspection Skin: positive: Color nml, No rash, Warm, Dry Extremities: positive: Nml appearance, No pedal edema Neurologic/Psychiatric: positive: Oriented x3, CN's nml (2-12), Motor nml, Sensation nml, Other (No nystagmus) - Lab Results Fish Bones: 02/23/24 04:55 02/23/24 04:55 Other Labs: Lab Results x24hrs 08/07/0602/23/24 02/22/24 Range/Units 04:55 04:55 23:06 WBC 6.2 (4.8-10.8) x10^3/uL RBC 3.53 L (4.20-5.40) 10^6/uL Hgb 11.3 L (12.0-16.0) g/dL Hct 34.0 L (37.0-47.0) % MCV 96.3 (81.0-99.0) fL MCH 32.0 H (27.0-31.0) pg MCHC 33.2 (32.0-36.0) g/dL RDW 12.7 (12.0-15.0) % Plt Count 191 (130-450) 10^3/uL MPV 9.3 (7.9-10.8) fL Neut # (Auto) 3.9 (1.5-6.6) 10^3/uL Lymph # (Auto) 1.5 (1.5-3.5) 10^3/uL [place] # (Auto) 0.6 (0.0-1.0) 10^3/uL Eos # (Auto) 0.1 (0.0-0.7) 10^3/uL Baso # (Auto) 0.1 (0.0-0.1) 10^3/uL Absolute Nucleated RBC 0.00 x10^3/uL Nucleated RBC % 0.0 /100WBC Sodium 126 L 126 L (135-145) mmol/L Potassium 3.7 (3.5-4.5) mmol/L Chloride 94 L (101-111) mmol/L Carbon Dioxide 26 (21-32) mmol/L Anion Gap 6.0 (6-13) BUN 10 (6-20) mg/dL Creatinine 0.4 L (0.6-1.3) mg/dL Estimated GFR (MDRD) 152 (>89) Glucose 117 H (74-104) mg/dL Calcium 9.5 (8.5-10.3) mg/dL 02/22/24 02/22/24 Range/Units 17:00 10:48 WBC (4.8-10.8) x10^3/uL RBC (4.20-5.40) 10^6/uL Hgb (12.0-16.0) g/dL Hct (37.0-47.0) % MCV (81.0-99.0) fL MCH (27.0-31.0) pg MCHC (32.0-36.0) g/dL RDW (12.0-15.0) % Plt Count (130-450) 10^3/uL MPV (7.9-10.8) fL Neut # (Auto) (1.5-6.6) 10^3/uL Lymph # (Auto) (1.5-3.5) 10^3/uL [place] # (Auto) (0.0-1.0) 10^3/uL Eos # (Auto) (0.0-0.7) 10^3/uL Baso # (Auto) (0.0-0.1) 10^3/uL Absolute Nucleated RBC x10^3/uL Nucleated RBC % /100WBC Sodium 125 L 124 L (135-145) mmol/L Potassium (3.5-4.5) mmol/L Chloride (101-111) mmol/L Carbon Dioxide (21-32) mmol/L Anion Gap (6-13) BUN (6-20) mg/dL Creatinine (0.6-1.3) mg/dL Estimated GFR (MDRD) (>89) Glucose (74-104) mg/dL Calcium (8.5-10.3) mg/dL Sepsis Event Note (H) - Evaluation Current Stage of Sepsis: Ruled out Assessment/Plan - Problem List (1) Hyponatremia Impression: She has acute on chronic hyponatremia. The most likely etiology is that she is drinking excess water and has not been having good solute intake given her poor appetite. There is however the possibility of underlying SIADH as a contributor to her chronic hyponatremia. -TSH, cortisol, triglyceride unremarkable. Urine sodium is 46 and urine specific gravity is 1.015. -Unable to obtain serum/urine osmolality as this is a send out lab that takes several days to return and would not be clinically relevant at that time. -Continue 1500 ml fluid restriction. -Normal Saline increased from 50 to 75 cc/hr yesterday. Sodium is still improving, though at a slow rate. -Add NaCl 1 gm tab BID for now. -Baseline chronic hyponatremia is 130-132. -Possibly ready for discharge tomorrow if sodium improves more. (2) Essential hypertension Impression: Controlled today. -Holding home spironolactone given hyponatremia; would discontinue this at disc harge. -Continue home carvedilol 25 mg twice daily, Losartan 100 mg daily and amlodipine 5 mg every afternoon. -P.o. hydralazine available as needed. (3) History of aortic dissection Impression: She presented in 2019 to the emergency department with chest pain and back pain and a CT scan was found to have a [place] type A aortic dissection. She was sent to [facility] where she underwent operative repair. She has since followed with a piano maker due to her hypertension but she denies having any primary cardiac issues. She recently stopped going to the piano maker as he indicated she did not need to see him and can follow-up with her PCP for blood pressure management. -Her admission CT scan does show chronic changes from her aortic dissection, but she has no acute pathology. -No acute inpatient issues at this time. (4) Dizziness Impression: -Continue to treat hyponatremia as noted above. -As needed meclizine added today. -If still symptomatic tomorrow, can check orthostatic vitals prior to possible discharge. So far she has been able to ambulate effectively. (5) Flank pain Impression: She reports having left-sided flank pain intermittently for the past several days and reportedly had blood in her urine at her PCP office. CT of her abdomen here shows no problem on the left and no indication of nephrolithiasis. Her admission urinalysis was likewise negative. -Unclear if she maybe passed a stone several days ago however no acute pathology noted currently. -Will monitor for now. (6) Insomnia Impression: She reports significant problems with insomnia over the past 1 to 2 weeks, which may be a side effect from her hyponatremia. CT head is unremarkable. -Ambien as needed while in the hospital. (7) Nausea Impression: Her nausea and poor appetite is likely compounded by her hyponatremia. -Treat hyponatremia as noted above. -As needed Zofran available. -Resolved. (8) Hypomagnesemia Impression: Continue magnesium oxide 400 mg BID for now, will likely need this at discharge.
[2024-02-24 04:56] LABS: BASOPHILS # (AUTO) 0.1 10^3/uL (0.0-0.1); EOSINOPHILS # (AUTO) 0.2 10^3/uL (0.0-0.7); EOSINOPHILS % (AUTO) 2.7 %; HCT - HEMATOCRIT 33.7 % (37.0-47.0); HGB - HEMOGLOBIN 11.5 g/dL (12.0-16.0); LYMPHOCYTES # (AUTO) 1.7 10^3/uL (1.5-3.5); LYMPHOCYTES % (AUTO) 28.4 %; MEAN CORPUSCULAR HEMOGLOBIN 32.8 pg (27.0-31.0); MEAN CORPUSCULAR HGB CONC 34.1 g/dL (32.0-36.0); MEAN PLATELET VOLUME 9.5 fL (7.9-10.8); MONOCYTES # (AUTO) 0.6 10^3/uL (0.0-1.0); MONOCYTES % (AUTO) 10.4 %; NEUTROPHILS # (AUTO) 3.4 10^3/uL (1.5-6.6); PLT - PLATELET COUNT 177 10^3/uL (130-450); RED BLOOD COUNT 3.51 10^6/uL (4.20-5.40); RED CELL DISTRIBUTION WIDTH 12.9 % (12.0-15.0)
[2024-02-24 05:14] LABS: CALCIUM 9.2 mg/dL (8.5-10.3); CREATININE 0.4 mg/dL (0.6-1.3); POTASSIUM 3.8 mmol/L (3.5-4.5)
[2024-02-24] MEDS: MECLIZINE 12.5 MG TABLET PO PRN (11:21)
[2024-02-24] MEDS: SODIUM CHLORIDE 1 GM TABLET PO SCH (15:04)
--- NOTE | 2024-02-24 21:11 | PROVIDER PROGRESS NOTE ---
Assessment/Plan - Problem List (1) Hyponatremia Assessment/Plan: Impression: She has acute on chronic hyponatremia. Etiology is unclear may be secondary to SIADH or excess consumption of free water TSH, cortisol, triglyceride unremarkable. Urine sodium is 46 and urine specific gravity is 1.015. Continue 1500 ml fluid restriction. Discontinue normal saline Increase salt tablets to 2 tablets 3 times a day Consider discharge once serum sodium is greater than 130. (2) Essential hypertension Impression: Controlled today. Hold home spironolactone given hyponatremia; would discontinue this at discharge. Continue home carvedilol 25 mg twice daily, Losartan 100 mg daily and amlodipine 5 mg every afternoon. P.o. hydralazine available as needed. (3) History of aortic dissection Impression: She presented in 2019 to the emergency department with chest pain and back pain and a CT scan was found to have a [place] type A aortic dissection. She was sent to [facility] where she underwent operative repair. This issue appears to be stable (4) Dizziness Impression: Continue to treat hyponatremia as noted above. As needed meclizine added today. If still symptomatic tomorrow, can check orthostatic vitals prior to possible discharge. So far she has been able to ambulate effectively. (5) Flank pain Impression: Appears to have resolved. Continue to monitor. (6) Insomnia Impression: Ambien as needed while in the hospital. (7) Hypomagnesemia Impression: Continue magnesium oxide 400 mg BID - Current Meds Current Meds: Current Medications Generic Name Dose Route Start Last Admin Trade Name Freq PRN Reason Stop Dose Admin Amlodipine Besylate 5 mg 02/22/24 17:00 02/24/24 16:46 Amlodipine 5 Mg Tablet PO 5 mg QDDINNER HELENA Administration Carvedilol 25 mg 02/22/24 17:00 02/24/24 16:45 Carvedilol 12.5 Mg Tablet PO 25 mg BIDWM HELENA Administration Enoxaparin Sodium 40 mg 02/22/24 09:00 02/24/24 08:12 Enoxaparin 40 Mg/0.4 Ml Syringe SUBQ 40 mg DAILY HELENA Administration Losartan Potassium 100 mg 02/23/24 09:00 02/24/24 08:12 Losartan 50 Mg Tablet PO 100 mg DAILY HELENA Administration Magnesium Oxide 400 mg 02/22/24 09:00 02/24/24 08:12 Magnesium Oxide 400 Mg Tablet PO 400 mg BID HELENA Administration Meclizine HCl 25 mg 02/23/24 09:26 02/24/24 16:53 Meclizine 12.5 Mg Tablet PO 25 mg Q6HR PRN Administration Dizziness Sodium Chloride 10 ml 02/22/24 01:00 02/24/24 16:50 Sodium Chloride Flush 0.9% 10 Ml Syringe IVP 10 ml 0100,0900,1700 HELENA Administration Sodium Chloride 2 gm 02/24/24 16:00 02/24/24 15:04 Sodium Chloride 1 Gm Tablet PO 2 gm TID HELENA Administration - Lab Result Fish Bone Diagrams: 02/24/24 04:30 02/24/24 04:30 - Additional Planning My Orders: My Active Orders 02/24/24 16:00 Sodium Chloride [Salt Tab] 2 gm PO TID Subjective - Subjective Patient Reports: Other (Alert. Denies chest pain, shortness of breath and abdominal pain no other complaints at this time.Complains of intermittent vertigo that appears to be chronic.) Objective Vital Signs: Vital Signs - 24 hr 02/24/24 02/24/24 02/24/24 02:15 05:51 08:20 Temperature 36.4 C L 36.4 C L 36.5 C Heart Rate [ 60 58 L 65 Brachial] Respiratory 16 16 16 Rate Blood Pressure 133/71 H 138/75 H 123/72 [Right Brachial artery] O2 Saturation 95 96 96 02/24/24 02/24/24 02/24/24 12:06 15:31 20:00 Temperature 36.4 C L 36.4 C L 36.6 C Heart Rate [ 62 61 62 Brachial] Respiratory 18 12 12 Rate Blood Pressure 138/75 H 134/79 H 131/70 H [Right Brachial artery] O2 Saturation 96 96 96 Oxygen O2 Source Room air I&O (Last 24 Hrs): Intake and Output Totals x24h 02/22/24 02/23/24 02/24/24 23:59 23:59 23:59 Intake Total 2254.167 3803.75 1780 Output Total 1700 1350 1150 Balance 860.262 4916.75 630 General: Alert, Oriented x3, No acute distress Neck: Supple, No JVD Neuro: Alert, Non Focal Cardiovascular: Other (Positive S1-S2 no extra heart sounds.) Respiratory: Other (Good air exchange in all lung zimmerman no wheezing or crackles) Abdomen: Other (Soft nontender nondistended positive bowel sounds) Extremities: No cyanosis Skin: No rashes - Results Results: Laboratory Results WBC 6.0 x10^3/uL (4.8-10.8) 02/24/24 04:30 RBC 3.51 10^6/uL (4.20-5.40) L 02/24/24 04:30 Hgb 11.5 g/dL (12.0-16.0) L 02/24/24 04:30 Hct 33.7 % (37.0-47.0) L 02/24/24 04:30 MCV 96.0 fL (81.0-99.0) 02/24/24 04:30 MCH 32.8 pg (27.0-31.0) H 02/24/24 04:30 MCHC 34.1 g/dL (32.0-36.0) 02/24/24 04:30 RDW 12.9 % (12.0-15.0) 02/24/24 04:30 Plt Count 177 10^3/uL (130-450) 02/24/24 04:30 MPV 9.5 fL (7.9-10.8) 02/24/24 04:30 Neut # (Auto) 3.4 10^3/uL (1.5-6.6) 02/24/24 04:30 Lymph # (Auto) 1.7 10^3/uL (1.5-3.5) 02/24/24 04:30 [place] # (Auto) 0.6 10^3/uL (0.0-1.0) 02/24/24 04:30 Eos # (Auto) 0.2 10^3/uL (0.0-0.7) 02/24/24 04:30 Baso # (Auto) 0.1 10^3/uL (0.0-0.1) 02/24/24 04:30 Absolute Nucleated RBC 0.00 x10^3/uL 02/24/24 04:30 Nucleated RBC % 0.0 /100WBC 02/24/24 04:30 Sodium 127 mmol/L (135-145) L 02/24/24 04:30 Potassium 3.8 mmol/L (3.5-4.5) 02/24/24 04:30 Chloride 95 mmol/L (101-111) L 02/24/24 04:30 Carbon Dioxide 28 mmol/L (21-32) 02/24/24 04:30 Anion Gap 4.0 (6-13) L 02/24/24 04:30 BUN 11 mg/dL (6-20) 02/24/24 04:30 Creatinine 0.4 mg/dL (0.6-1.3) L 02/24/24 04:30 Estimated GFR (MDRD) 152 (>89) 02/24/24 04:30 Glucose 95 mg/dL (74-104) 02/24/24 04:30 Calcium 9.2 mg/dL (8.5-10.3) 02/24/24 04:30 Phosphorus 2.9 mg/dL (2.5-5.0) 02/21/24 13:58 Magnesium 1.6 mg/dL (1.7-2.3) L 02/22/24 05:15 Total Bilirubin 0.5 mg/dL (0.2-1.0) 02/21/24 13:58 AST 19 IU/L (10-42) 02/21/24 13:58 ALT 20 IU/L (10-60) 02/21/24 13:58 Alkaline Phosphatase 112 IU/L (42-121) 02/21/24 13:58 Total Protein 6.9 g/dL (6.4-8.9) 02/21/24 13:58 Albumin 4.3 g/dL (3.2-5.5) 02/21/24 13:58 Globulin 2.6 g/dL (2.1-4.2) 02/21/24 13:58 Albumin/Globulin Ratio 1.7 (1.0-2.2) 02/21/24 13:58 Triglycerides 57 mg/dL 02/21/24 13:58 Lipase 29 U/L (11-82) 02/21/24 13:58 Vitamin D 25-Hydroxy 22.0 ng/mL (30.0-100.0) L 02/21/24 13:58 TSH 2.35 uIU/mL (0.34-5.60) 02/21/24 13:58 Random Cortisol 19.8 ug/dL 02/21/24 13:58 Urine Color YELLOW 02/21/24 13:31 Urine Clarity CLEAR (CLEAR) 02/21/24 13:31 Urine pH 7.0 PH (5.0-7.5) 02/21/24 13:31 Ur Specific [place] 1.015 (1.002-1.030) 02/21/24 13:31 Urine Protein NEGATIVE mg/dL (NEGATIVE) 02/21/24 13:31 Urine Glucose (UA) NEGATIVE mg/dL (NEGATIVE) 02/21/24 13:31 Urine Ketones NEGATIVE mg/dL (NEGATIVE) 02/21/24 13:31 Urine Occult Blood TRACE-INTA (NEGATIVE) 02/21/24 13:31 Urine Nitrite NEGATIVE (NEGATIVE) 02/21/24 13:31 Urine Bilirubin NEGATIVE (NEGATIVE) 02/21/24 13:31 Urine Urobilinogen 0.2 (NORMAL) E.U./dL (NORMAL) 02/21/24 13:31 Ur Leukocyte Esterase NEGATIVE (NEGATIVE) 02/21/24 13:31 Ur Microscopic Review NOT INDICATED 02/21/24 13:31 Urine Culture Comments NOT INDICATED 02/21/24 13:31 Urine Sodium 46.3 mmol/L 02/21/24 13:31 - Procedures Procedures: Procedures CATARAC PHACOEMULS/ASPIR (02/03/14) CATARACT FRAG/ASPIR NEC (03/17/14) INSERT LENS AT CATAR EXT (03/17/14) Sepsis Event Note (H) - Evaluation Current Stage of Sepsis: Ruled out
[2024-02-25 05:29] LABS: CALCIUM 9.1 mg/dL (8.5-10.3); CREATININE 0.4 mg/dL (0.6-1.3); MAGNESIUM 1.5 mg/dL (1.7-2.3); POTASSIUM 3.4 mmol/L (3.5-4.5)
--- NOTE | 2024-02-25 08:04 | PROVIDER PROGRESS NOTE ---
Assessment/Plan - Problem List (1) Hyponatremia Assessment/Plan: Impression: Serum sodium continues to improve but remains moderately hyponatremic with a serum sodium of 128 this morning. She has acute on chronic hyponatremia. Etiology is unclear may be secondary to SIADH or excess consumption of free water TSH, cortisol, triglyceride unremarkable. Urine sodium is 46 and urine specific gravity is 1.015. Continue 1500 ml fluid restriction. Increase salt tablets to 3 tablets 3 times a day Consider discharge once serum sodium is greater than 130. (2) Essential hypertension Impression: Hold home spironolactone given hyponatremia; would discontinue this at discharge. Continue home carvedilol 25 mg twice daily, Losartan 100 mg daily and increase amlodipine 10 mg daily. P.o. hydralazine available as needed. (3) History of aortic dissection Impression: She presented in 2019 to the emergency department with chest pain and back pain and a CT scan was found to have a [place] type A aortic dissection. She was sent to [facility] where she underwent operative repair. This issue appears to be stable (4) Dizziness Impression: Continue to treat hyponatremia as noted above. (5) Flank pain Impression: Appears to have resolved. Continue to monitor. (6) Insomnia Impression: Ambien as needed while in the hospital. (7) Hypomagnesemia Impression: Continue magnesium oxide 400 mg BID - Current Meds Current Meds: Current Medications Generic Name Dose Route Start Last Admin Trade Name Freq PRN Reason Stop Dose Admin Amlodipine Besylate 5 mg 02/22/24 17:00 02/24/24 16:46 Amlodipine 5 Mg Tablet PO 5 mg QDDINNER HELENA Administration Carvedilol 25 mg 02/22/24 17:00 02/24/24 16:45 Carvedilol 12.5 Mg Tablet PO 25 mg BIDWM HELENA Administration Enoxaparin Sodium 40 mg 02/22/24 09:00 02/24/24 08:12 Enoxaparin 40 Mg/0.4 Ml Syringe SUBQ 40 mg DAILY HELENA Administration Losartan Potassium 100 mg 02/23/24 09:00 02/24/24 08:12 Losartan 50 Mg Tablet PO 100 mg DAILY HELENA Administration Magnesium Oxide 400 mg 02/22/24 09:00 02/24/24 21:16 Magnesium Oxide 400 Mg Tablet PO Not Given BID HELENA Sodium Chloride 10 ml 02/22/24 01:00 02/24/24 23:45 Sodium Chloride Flush 0.9% 10 Ml Syringe IVP 10 ml 0100,0900,1700 HELENA Administration - Lab Result Fish Bone Diagrams: 02/24/24 04:30 02/25/24 04:30 - Additional Planning My Orders: My Active Orders 02/25/24 09:00 Sodium Chloride [Salt Tab] 3 gm PO TID 02/25/24 12:00 Furosemide [Lasix] 20 mg PO ONCE 02/25/24 17:00 Potassium Chloride Oral Soln [Potassium Chloride] 40 meq PO ONCE Subjective - Subjective Patient Reports: Other (Alert. Denies chest pain, shortness of breath and abdominal pain. Denies fevers and chills. She has no complaints of dizziness recently) Objective Vital Signs: Vital Signs - 24 hr 02/24/24 02/24/24 02/24/24 08:20 12:06 15:31 Temperature 36.5 C 36.4 C L 36.4 C L Heart Rate [ 65 62 61 Brachial] Respiratory 16 18 12 Rate Blood Pressure 123/72 138/75 H 134/79 H [Right Brachial artery] O2 Saturation 96 96 96 02/24/24 02/24/24 02/25/24 20:00 23:41 04:00 Temperature 36.6 C 36.4 C L 36.5 C Heart Rate [ 62 66 55 L Brachial] Respiratory 12 16 Rate Blood Pressure 131/70 H 143/87 H [Right Brachial artery] O2 Saturation 96 96 Oxygen O2 Source Room air I&O (Last 24 Hrs): Intake and Output Totals x24h 02/23/24 02/24/24 02/25/24 23:59 23:59 23:59 Intake Total 3803.75 1930 250 Output Total 1350 1700 300 Balance 2453.75 230 -50 General: Alert, Oriented x3, No acute distress HEENT: Atraumatic Neck: No JVD Neuro: Alert, Non Focal Cardiovascular: Other (Positive S1-S2. No extra heart sounds.) Respiratory: Other (Good air exchange in all lung zimmerman no wheezing no crackles.) Abdomen: Other (Soft nontender nondistended positive bowel sounds) Extremities: No cyanosis, Other Skin: No rashes - Results Results: Laboratory Results WBC 6.0 x10^3/uL (4.8-10.8) 02/24/24 04:30 RBC 3.51 10^6/uL (4.20-5.40) L 02/24/24 04:30 Hgb 11.5 g/dL (12.0-16.0) L 02/24/24 04:30 Hct 33.7 % (37.0-47.0) L 02/24/24 04:30 MCV 96.0 fL (81.0-99.0) 02/24/24 04:30 MCH 32.8 pg (27.0-31.0) H 02/24/24 04:30 MCHC 34.1 g/dL (32.0-36.0) 02/24/24 04:30 RDW 12.9 % (12.0-15.0) 02/24/24 04:30 Plt Count 177 10^3/uL (130-450) 02/24/24 04:30 MPV 9.5 fL (7.9-10.8) 02/24/24 04:30 Neut # (Auto) 3.4 10^3/uL (1.5-6.6) 02/24/24 04:30 Lymph # (Auto) 1.7 10^3/uL (1.5-3.5) 02/24/24 04:30 [place] # (Auto) 0.6 10^3/uL (0.0-1.0) 02/24/24 04:30 Eos # (Auto) 0.2 10^3/uL (0.0-0.7) 02/24/24 04:30 Baso # (Auto) 0.1 10^3/uL (0.0-0.1) 02/24/24 04:30 Absolute Nucleated RBC 0.00 x10^3/uL 02/24/24 04:30 Nucleated RBC % 0.0 /100WBC 02/24/24 04:30 Sodium 128 mmol/L (135-145) L 02/25/24 04:30 Potassium 3.4 mmol/L (3.5-4.5) L 02/25/24 04:30 Chloride 95 mmol/L (101-111) L 02/25/24 04:30 Carbon Dioxide 27 mmol/L (21-32) 02/25/24 04:30 Anion Gap 6.0 (6-13) 02/25/24 04:30 BUN 15 mg/dL (6-20) 02/25/24 04:30 Creatinine 0.4 mg/dL (0.6-1.3) L 02/25/24 04:30 Estimated GFR (MDRD) 152 (>89) 02/25/24 04:30 Glucose 83 mg/dL (74-104) 02/25/24 04:30 Calcium 9.1 mg/dL (8.5-10.3) 02/25/24 04:30 Phosphorus 2.9 mg/dL (2.5-5.0) 02/21/24 13:58 Magnesium 1.5 mg/dL (1.7-2.3) L 02/25/24 04:30 Total Bilirubin 0.5 mg/dL (0.2-1.0) 02/21/24 13:58 AST 19 IU/L (10-42) 02/21/24 13:58 ALT 20 IU/L (10-60) 02/21/24 13:58 Alkaline Phosphatase 112 IU/L (42-121) 02/21/24 13:58 Total Protein 6.9 g/dL (6.4-8.9) 02/21/24 13:58 Albumin 4.3 g/dL (3.2-5.5) 02/21/24 13:58 Globulin 2.6 g/dL (2.1-4.2) 02/21/24 13:58 Albumin/Globulin Ratio 1.7 (1.0-2.2) 02/21/24 13:58 Triglycerides 57 mg/dL 02/21/24 13:58 Lipase 29 U/L (11-82) 02/21/24 13:58 Vitamin D 25-Hydroxy 22.0 ng/mL (30.0-100.0) L 02/21/24 13:58 TSH 2.35 uIU/mL (0.34-5.60) 02/21/24 13:58 Random Cortisol 19.8 ug/dL 02/21/24 13:58 Urine Color YELLOW 02/21/24 13:31 Urine Clarity CLEAR (CLEAR) 02/21/24 13:31 Urine pH 7.0 PH (5.0-7.5) 02/21/24 13:31 Ur Specific [place] 1.015 (1.002-1.030) 02/21/24 13:31 Urine Protein NEGATIVE mg/dL (NEGATIVE) 02/21/24 13:31 Urine Glucose (UA) NEGATIVE mg/dL (NEGATIVE) 02/21/24 13:31 Urine Ketones NEGATIVE mg/dL (NEGATIVE) 02/21/24 13:31 Urine Occult Blood TRACE-INTA (NEGATIVE) 02/21/24 13:31 Urine Nitrite NEGATIVE (NEGATIVE) 02/21/24 13:31 Urine Bilirubin NEGATIVE (NEGATIVE) 02/21/24 13:31 Urine Urobilinogen 0.2 (NORMAL) E.U./dL (NORMAL) 02/21/24 13:31 Ur Leukocyte Esterase NEGATIVE (NEGATIVE) 02/21/24 13:31 Ur Microscopic Review NOT INDICATED 02/21/24 13:31 Urine Culture Comments NOT INDICATED 02/21/24 13:31 Urine Sodium 46.3 mmol/L 02/21/24 13:31 - Procedures Procedures: Procedures CATARAC PHACOEMULS/ASPIR (02/03/14) CATARACT FRAG/ASPIR NEC (03/17/14) INSERT LENS AT CATAR EXT (03/17/14) Sepsis Event Note (H) - Evaluation Current Stage of Sepsis: Ruled out
[2024-02-25] MEDS: SODIUM CHLORIDE 1 GM TABLET PO SCH ×2 (09:00→14:06)
[2024-02-25] MEDS: POTASSIUM CHLORIDE 20 MEQ/15 ML UDC PO ONE ×2 (09:01→17:06)
[2024-02-25] MEDS: FUROSEMIDE 20 MG TABLET PO ONE (12:19)
[2024-02-25] MEDS: amLODIPine 5 MG TABLET PO SCH (17:05)
[2024-02-26 05:13] LABS: CALCIUM 9.4 mg/dL (8.5-10.3); CREATININE 0.4 mg/dL (0.6-1.3); MAGNESIUM 1.6 mg/dL (1.7-2.3); PHOSPHORUS 2.7 mg/dL (2.5-5.0)
[2024-02-26] MEDS: FUROSEMIDE 20 MG TABLET PO SCH (14:24)
[2024-02-26] MEDS: POTASSIUM CHLORIDE 20 MEQ/15 ML UDC PO SCH (14:24)
[2024-02-26] MEDS: SODIUM CHLORIDE 1 GM TABLET PO SCH ×2 (14:24→16:43)
--- NOTE | 2024-02-26 17:42 | PROVIDER PROGRESS NOTE ---
Assessment/Plan - Problem List (1) Hyponatremia Assessment/Plan: Impression: Serum sodium but remains moderately hyponatremic with a serum sodium of 128 this morning. Salt tablets were increased to 3 g 3 times a day yesterday but unfortunately patient could not tolerate taking 3 g at a time. Plan is to give 2 g 3 times a day and several doses of 1 g throughout the day.Patient also has received furosemide 20 mg. Etiology is unclear may be secondary to SIADH or excess consumption of free water TSH, cortisol, triglyceride unremarkable. Urine sodium is 46 and urine specific gravity is 1.015. Continue 1500 ml fluid restriction. Increase salt tablets to 3 tablets 3 times a day Consider discharge once serum sodium is greater than 130. Patient continues to qualify for inpatient hospitalization because she continues to have moderate hyponatremia. (2) Essential hypertension Impression: Hold home spironolactone given hyponatremia and discontinue this at discharge. Continue home carvedilol 25 mg twice daily, Losartan 100 mg daily and increase amlodipine 10 mg daily. PO hydralazine available as needed. (3) History of aortic dissection Impression: She presented in 2019 to the emergency department with chest pain and back pain and a CT scan was found to have a [place] type A aortic dissection. She was sent to [facility] where she underwent operative repair. This issue appears to be stable (4) Dizziness Impression: Continue to treat hyponatremia as noted above. (5) Flank pain Impression: Appears to have resolved. Continue to monitor. (6) Insomnia Impression: Ambien as needed while in the hospital. (7) Hypomagnesemia Impression: Continue magnesium oxide 400 mg BID - Current Meds Current Meds: Current Medications Generic Name Dose Route Start Last Admin Trade Name Lanie PRN Reason Stop Dose Admin Amlodipine Besylate 10 mg 02/25/24 17:00 02/26/24 16:42 Amlodipine 5 Mg Tablet PO 10 mg QDDINNER HELENA Administration Carvedilol 25 mg 02/22/24 17:00 02/26/24 16:42 Carvedilol 12.5 Mg Tablet PO 25 mg BIDWM HELENA Administration Enoxaparin Sodium 40 mg 02/22/24 09:00 02/26/24 08:12 Enoxaparin 40 Mg/0.4 Ml Syringe SUBQ 40 mg DAILY HELENA Administration Losartan Potassium 100 mg 02/23/24 09:00 02/26/24 08:11 Losartan 50 Mg Tablet PO 100 mg DAILY HELENA Administration Magnesium Oxide 400 mg 02/22/24 09:00 02/26/24 08:11 Magnesium Oxide 400 Mg Tablet PO 400 mg BID HELENA Administration Sodium Chloride 10 ml 02/22/24 01:00 02/26/24 16:43 Sodium Chloride Flush 0.9% 10 Ml Syringe IVP 10 ml 0100,0900,1700 HELENA Administration Sodium Chloride 2 gm 02/25/24 14:00 02/26/24 13:30 Sodium Chloride 1 Gm Tablet PO 2 gm TID HELENA Administration - Lab Result Fish Bone Diagrams: 02/24/24 04:30 02/26/24 04:30 - Additional Planning My Orders: My Active Orders 02/25/24 17:00 amLODIPine [Norvasc] 10 mg PO QDDINNER Subjective - Subjective Patient Reports: Other (Alert. Denies shortness of breath, chest pain and abdominal pain. She reports she slept poorly last night. Otherwise no complaints.) Objective Vital Signs: Vital Signs - 24 hr 02/25/24 02/25/24 02/26/24 20:00 23:24 04:37 Temperature 36.5 C 36.3 C L 36.4 C L Heart Rate [ 54 L 62 57 L Brachial] Respiratory 12 18 16 Rate Blood Pressure 138/76 H 133/76 H 124/74 [Right Brachial artery] O2 Saturation 97 96 97 02/26/24 02/26/24 02/26/24 07:50 08:11 12:00 Temperature 36.5 C 36.5 C Heart Rate [ 55 L 69 64 Brachial] Respiratory 18 18 Rate Blood Pressure 128/74 128/75 [Right Brachial artery] O2 Saturation 95 97 02/26/24 15:29 Temperature 36.4 C L Heart Rate [ 59 L Brachial] Respiratory 18 Rate Blood Pressure 152/76 H [Right Brachial artery] O2 Saturation 97 Oxygen O2 Source Room air I&O (Last 24 Hrs): Intake and Output Totals x24h 02/24/24 02/25/24 02/26/24 23:59 23:59 23:59 Intake Total 1930 1305 490 Output Total 1700 1325 900 Balance 230 -20 -410 General: Alert, Oriented x3, No acute distress Neck: Supple, No JVD Neuro: Alert, Non Focal Cardiovascular: Other (Positive S1-S2 no extra heart sounds) Respiratory: Other (Good air exchange in all lung zimmerman no wheezing no crackles) Abdomen: Other (Soft nontender nondistended positive bowel sounds.) Extremities: No cyanosis, No edema Skin: No rashes - Results Results: Laboratory Results WBC 6.0 x10^3/uL (4.8-10.8) 02/24/24 04:30 RBC 3.51 10^6/uL (4.20-5.40) L 02/24/24 04:30 Hgb 11.5 g/dL (12.0-16.0) L 02/24/24 04:30 Hct 33.7 % (37.0-47.0) L 02/24/24 04:30 MCV 96.0 fL (81.0-99.0) 02/24/24 04:30 MCH 32.8 pg (27.0-31.0) H 02/24/24 04:30 MCHC 34.1 g/dL (32.0-36.0) 02/24/24 04:30 RDW 12.9 % (12.0-15.0) 02/24/24 04:30 Plt Count 177 10^3/uL (130-450) 02/24/24 04:30 MPV 9.5 fL (7.9-10.8) 02/24/24 04:30 Neut # (Auto) 3.4 10^3/uL (1.5-6.6) 02/24/24 04:30 Lymph # (Auto) 1.7 10^3/uL (1.5-3.5) 02/24/24 04:30 [place] # (Auto) 0.6 10^3/uL (0.0-1.0) 02/24/24 04:30 Eos # (Auto) 0.2 10^3/uL (0.0-0.7) 02/24/24 04:30 Baso # (Auto) 0.1 10^3/uL (0.0-0.1) 02/24/24 04:30 Absolute Nucleated RBC 0.00 x10^3/uL 02/24/24 04:30 Nucleated RBC % 0.0 /100WBC 02/24/24 04:30 Sodium 128 mmol/L (135-145) L 02/26/24 04:30 Potassium 4.0 mmol/L (3.5-4.5) 02/26/24 04:30 Chloride 96 mmol/L (101-111) L 02/26/24 04:30 Carbon Dioxide 28 mmol/L (21-32) 02/26/24 04:30 Anion Gap 4.0 (6-13) L 02/26/24 04:30 BUN 14 mg/dL (6-20) 02/26/24 04:30 Creatinine 0.4 mg/dL (0.6-1.3) L 02/26/24 04:30 Estimated GFR (MDRD) 152 (>89) 02/26/24 04:30 Glucose 96 mg/dL (74-104) 02/26/24 04:30 Calcium 9.4 mg/dL (8.5-10.3) 02/26/24 04:30 Phosphorus 2.7 mg/dL (2.5-5.0) 02/26/24 04:30 Magnesium 1.6 mg/dL (1.7-2.3) L 02/26/24 04:30 Total Bilirubin 0.5 mg/dL (0.2-1.0) 02/21/24 13:58 AST 19 IU/L (10-42) 02/21/24 13:58 ALT 20 IU/L (10-60) 02/21/24 13:58 Alkaline Phosphatase 112 IU/L (42-121) 02/21/24 13:58 Total Protein 6.9 g/dL (6.4-8.9) 02/21/24 13:58 Albumin 4.3 g/dL (3.2-5.5) 02/21/24 13:58 Globulin 2.6 g/dL (2.1-4.2) 02/21/24 13:58 Albumin/Globulin Ratio 1.7 (1.0-2.2) 02/21/24 13:58 Triglycerides 57 mg/dL 02/21/24 13:58 Lipase 29 U/L (11-82) 02/21/24 13:58 Vitamin D 25-Hydroxy 22.0 ng/mL (30.0-100.0) L 02/21/24 13:58 TSH 2.35 uIU/mL (0.34-5.60) 02/21/24 13:58 Random Cortisol 19.8 ug/dL 02/21/24 13:58 Urine Color YELLOW 02/21/24 13:31 Urine Clarity CLEAR (CLEAR) 02/21/24 13:31 Urine pH 7.0 PH (5.0-7.5) 02/21/24 13:31 Ur Specific [place] 1.015 (1.002-1.030) 02/21/24 13:31 Urine Protein NEGATIVE mg/dL (NEGATIVE) 02/21/24 13:31 Urine Glucose (UA) NEGATIVE mg/dL (NEGATIVE) 02/21/24 13:31 Urine Ketones NEGATIVE mg/dL (NEGATIVE) 02/21/24 13:31 Urine Occult Blood TRACE-INTA (NEGATIVE) 02/21/24 13:31 Urine Nitrite NEGATIVE (NEGATIVE) 02/21/24 13:31 Urine Bilirubin NEGATIVE (NEGATIVE) 02/21/24 13:31 Urine Urobilinogen 0.2 (NORMAL) E.U./dL (NORMAL) 02/21/24 13:31 Ur Leukocyte Esterase NEGATIVE (NEGATIVE) 02/21/24 13:31 Ur Microscopic Review NOT INDICATED 02/21/24 13:31 Urine Culture Comments NOT INDICATED 02/21/24 13:31 Urine Sodium 46.3 mmol/L 02/21/24 13:31 - Procedures Procedures: Procedures CATARAC PHACOEMULS/ASPIR (02/03/14) CATARACT FRAG/ASPIR NEC (03/17/14) INSERT LENS AT CATAR EXT (03/17/14) Sepsis Event Note (H) - Evaluation Current Stage of Sepsis: Ruled out
[2024-02-26] MEDS: MELATONIN 3 MG TABLET PO PRN (22:01)
[2024-02-27 05:41] LABS: CALCIUM 9.5 mg/dL (8.5-10.3); CREATININE 0.5 mg/dL (0.6-1.3); MAGNESIUM 1.6 mg/dL (1.7-2.3); POTASSIUM 3.8 mmol/L (3.5-4.5)
[2024-02-27] MEDS: CHOLECALCIFEROL 25 MCG TABLET PO SCH (08:37)
[2024-02-27] MEDS: SODIUM CHLORIDE 1 GM TABLET PO SCH ×2 (16:35→20:06)
[2024-02-27] MEDS ORDERED: SODIUM CHLORIDE 1 GM TABLET PO SCH (19:30)
--- NOTE | 2024-02-27 21:09 | PROVIDER PROGRESS NOTE ---
Assessment/Plan - Problem List (1) Hyponatremia Assessment/Plan: Serum sodium improved but remains moderately hyponatremic with a serum sodium of 129 this morning. Anticipate discharge to home once serum sodium is 130. Salt tablets were increased to 3 g 3 times a day on 02/24 but unfortunately patient could not tolerate taking 3 g at a time. Plan is to give 2 g 3 times a day and several doses of 1 g throughout the day. Etiology is unclear may be secondary to SIADH or excess consumption of free wate r TSH, cortisol, triglyceride unremarkable. Urine sodium is 46 and urine specific gravity is 1.015. Continue 1500 ml fluid restriction. Patient continues to qualify for inpatient hospitalization because she continues to have moderate hyponatremia. (2) Essential hypertension Impression: Hold home spironolactone given hyponatremia and discontinue this at discharge. Continue home carvedilol 25 mg twice daily, Losartan 100 mg daily and increase amlodipine 10 mg daily. PO hydralazine available as needed. (3) History of aortic dissection Impression: She presented in 2019 to the emergency department with chest pain and back pain and a CT scan was found to have a [place] type A aortic dissection. She was s ent to [facility] where she underwent operative repair. This issue appears to be stable (4) Dizziness Impression: Continue to treat hyponatremia as noted above. (5) Flank pain Impression: Appears to have resolved. Continue to monitor. (6) Insomnia Impression: Ambien as needed while in the hospital. (7) Hypomagnesemia Impression: Continue magnesium oxide 400 mg BID - Current Meds Current Meds: Current Medications Generic Name Dose Route Start Last Admin Trade Name Jonathanq PRN Reason Stop Dose Admin Amlodipine Besylate 10 mg 02/25/24 17:00 02/27/24 17:09 Amlodipine 5 Mg Tablet PO 10 mg QDDINNER HELENA Administration Carvedilol 25 mg 02/22/24 17:00 02/27/24 17:10 Carvedilol 12.5 Mg Tablet PO 25 mg BIDWM HELENA Administration Cholecalciferol 50 mcg 02/27/24 09:00 02/27/24 08:37 Cholecalciferol 25 Mcg Tablet PO 50 mcg DAILY HELENA Administration Enoxaparin Sodium 40 mg 02/22/24 09:00 02/27/24 08:35 Enoxaparin 40 Mg/0.4 Ml Syringe SUBQ 40 mg DAILY HELENA Administration Losartan Potassium 100 mg 02/23/24 09:00 02/27/24 08:35 Losartan 50 Mg Tablet PO 100 mg DAILY HELENA Administration Magnesium Oxide 400 mg 02/22/24 09:00 02/27/24 08:35 Magnesium Oxide 400 Mg Tablet PO 400 mg BID HELENA Administration Melatonin 6 mg 02/26/24 21:14 02/26/24 22:01 Melatonin 3 Mg Tablet PO 1.5 mg QPM PRN Administration Insomnia Sodium Chloride 10 ml 02/22/24 01:00 02/27/24 17:10 Sodium Chloride Flush 0.9% 10 Ml Syringe IVP 10 ml 0100,0900,1700 HELENA Administration Sodium Chloride 2 gm 02/25/24 14:00 02/27/24 13:51 Sodium Chloride 1 Gm Tablet PO 2 gm TID HELENA Administration Sodium Chloride 1 gm 02/27/24 19:30 02/27/24 20:06 Sodium Chloride 1 Gm Tablet PO 02/28/24 19:29 1 gm ONCE HELENA Administration - Lab Result Fish Bone Diagrams: 02/24/24 04:30 02/27/24 04:50 - Additional Planning My Orders: My Active Orders 02/27/24 09:00 Cholecalciferol [Vitamin D3] 50 mcg PO DAILY 02/27/24 19:30 Sodium Chloride [Salt Tab] 1 gm PO ONCE Subjective - Subjective Patient Reports: Other (Alert. Denies chest pain, shortness of breath and abdominal pain. No other complaints at this time.) Objective Vital Signs: Vital Signs - 24 hr 02/26/24 02/27/24 02/27/24 23:30 04:21 07:35 Temperature 36.3 C L 36.6 C 36.4 C L Heart Rate [ 66 69 58 L Brachial] Respiratory 18 18 16 Rate Blood Pressure 150/76 H 142/87 H 118/67 [Right Brachial artery] O2 Saturation 95 97 97 02/27/24 02/27/24 02/27/24 08:39 12:00 15:29 Temperature 36.4 C L 36.5 C Heart Rate [ 62 57 L 59 L Brachial] Respiratory 16 16 Rate Blood Pressure 136/75 H 128/73 [Right Brachial artery] O2 Saturation 95 97 Oxygen O2 Source Room air I&O (Last 24 Hrs): Intake and Output Totals x24h 02/25/24 02/26/24 02/27/24 23:59 23:59 23:59 Intake Total 1305 740 730 Output Total 1325 1175 450 Balance -20 -435 280 General: Alert, Oriented x3, No acute distress Neck: No JVD Neuro: Alert, Non Focal Cardiovascular: Other (Positive S1-S2 no extra heart sounds.) Respiratory: Other (Good air exchange in all lung zimmerman no wheezing no crackl es.) Abdomen: Other (Soft nontender nondistended positive bowel) Extremities: No cyanosis, No edema Skin: No rashes - Results Results: Laboratory Results WBC 6.0 x10^3/uL (4.8-10.8) 02/24/24 04:30 RBC 3.51 10^6/uL (4.20-5.40) L 02/24/24 04:30 Hgb 11.5 g/dL (12.0-16.0) L 02/24/24 04:30 Hct 33.7 % (37.0-47.0) L 02/24/24 04:30 MCV 96.0 fL (81.0-99.0) 02/24/24 04:30 MCH 32.8 pg (27.0-31.0) H 02/24/24 04:30 MCHC 34.1 g/dL (32.0-36.0) 02/24/24 04:30 RDW 12.9 % (12.0-15.0) 02/24/24 04:30 Plt Count 177 10^3/uL (130-450) 02/24/24 04:30 MPV 9.5 fL (7.9-10.8) 02/24/24 04:30 Neut # (Auto) 3.4 10^3/uL (1.5-6.6) 02/24/24 04:30 Lymph # (Auto) 1.7 10^3/uL (1.5-3.5) 02/24/24 04:30 [place] # (Auto) 0.6 10^3/uL (0.0-1.0) 02/24/24 04:30 Eos # (Auto) 0.2 10^3/uL (0.0-0.7) 02/24/24 04:30 Baso # (Auto) 0.1 10^3/uL (0.0-0.1) 02/24/24 04:30 Absolute Nucleated RBC 0.00 x10^3/uL 02/24/24 04:30 Nucleated RBC % 0.0 /100WBC 02/24/24 04:30 Sodium 129 mmol/L (135-145) L 02/27/24 04:50 Potassium 3.8 mmol/L (3.5-4.5) 02/27/24 04:50 Chloride 95 mmol/L (101-111) L 02/27/24 04:50 Carbon Dioxide 30 mmol/L (21-32) 02/27/24 04:50 Anion Gap 4.0 (6-13) L 02/27/24 04:50 BUN 19 mg/dL (6-20) 02/27/24 04:50 Creatinine 0.5 mg/dL (0.6-1.3) L 02/27/24 04:50 Estimated GFR (MDRD) 118 (>89) 02/27/24 04:50 Glucose 92 mg/dL (74-104) 02/27/24 04:50 Calcium 9.5 mg/dL (8.5-10.3) 02/27/24 04:50 Phosphorus 2.7 mg/dL (2.5-5.0) 02/26/24 04:30 Magnesium 1.6 mg/dL (1.7-2.3) L 02/27/24 04:50 Total Bilirubin 0.5 mg/dL (0.2-1.0) 02/21/24 13:58 AST 19 IU/L (10-42) 02/21/24 13:58 ALT 20 IU/L (10-60) 02/21/24 13:58 Alkaline Phosphatase 112 IU/L (42-121) 02/21/24 13:58 Total Protein 6.9 g/dL (6.4-8.9) 02/21/24 13:58 Albumin 4.3 g/dL (3.2-5.5) 02/21/24 13:58 Globulin 2.6 g/dL (2.1-4.2) 02/21/24 13:58 Albumin/Globulin Ratio 1.7 (1.0-2.2) 02/21/24 13:58 Triglycerides 57 mg/dL 02/21/24 13:58 Lipase 29 U/L (11-82) 02/21/24 13:58 Vitamin D 25-Hydroxy 22.0 ng/mL (30.0-100.0) L 02/21/24 13:58 TSH 2.35 uIU/mL (0.34-5.60) 02/21/24 13:58 Random Cortisol 19.8 ug/dL 02/21/24 13:58 Urine Color YELLOW 02/21/24 13:31 Urine Clarity CLEAR (CLEAR) 02/21/24 13:31 Urine pH 7.0 PH (5.0-7.5) 02/21/24 13:31 Ur Specific [place] 1.015 (1.002-1.030) 02/21/24 13:31 Urine Protein NEGATIVE mg/dL (NEGATIVE) 02/21/24 13:31 Urine Glucose (UA) NEGATIVE mg/dL (NEGATIVE) 02/21/24 13:31 Urine Ketones NEGATIVE mg/dL (NEGATIVE) 02/21/24 13:31 Urine Occult Blood TRACE-INTA (NEGATIVE) 02/21/24 13:31 Urine Nitrite NEGATIVE (NEGATIVE) 02/21/24 13:31 Urine Bilirubin NEGATIVE (NEGATIVE) 02/21/24 13:31 Urine Urobilinogen 0.2 (NORMAL) E.U./dL (NORMAL) 02/21/24 13:31 Ur Leukocyte Esterase NEGATIVE (NEGATIVE) 02/21/24 13:31 Ur Microscopic Review NOT INDICATED 02/21/24 13:31 Urine Culture Comments NOT INDICATED 02/21/24 13:31 Urine Sodium 46.3 mmol/L 02/21/24 13:31 - Procedures Procedures: Procedures CATARAC PHACOEMULS/ASPIR (02/03/14) CATARACT FRAG/ASPIR NEC (03/17/14) INSERT LENS AT CATAR EXT (03/17/14) Sepsis Event Note (H) - Evaluation Current Stage of Sepsis: Ruled out
[2024-02-28 05:19] LABS: MAGNESIUM 1.7 mg/dL (1.7-2.3)
[2024-02-28 05:30] LABS: CALCIUM 9.3 mg/dL (8.5-10.3); CREATININE 0.4 mg/dL (0.6-1.3)
[2024-02-28 05:31] VITALS: O2SAT 96
[2024-02-28 12:13] VITALS: BP 135/70
--- NOTE | 2024-02-28 12:19 | DISCHARGE SUMMARY ---
Discharge Summary Admit Date: 02/21/24 Discharge Date: 02/28/24 Discharging Provider: Dustin Mike MD Primary Care Provider: Tsering WALDROP Code Status: Attempt Resuscitation Condition at Discharge: Stable Discharge Disposition: 01 Home, Self Care Discharge Facility Name: [facility] - DIAGNOSES Admission Diagnoses: (1) Hyponatremia (2) Essential hypertension (3) History of aortic dissection (4) Flank pain (5) Insomnia (6) Nausea Discharge Diagnoses with Status of Each Condition: (1) Hyponatremia Assessment/Plan: Serum sodium has increased to 130. Recommend taking 1 gram salt table three times a day and restrict fluids to 2630-6073 mL per day until she sees her primary care provider. Etiology is unclear may be secondary to SIADH or excess consumption of free water TSH, cortisol, triglyceride unremarkable. Urine sodium is 46 and urine specific gravity is 1.015. (2) Essential hypertension Impression: Spironolactone discontinued on discharge because it may contribute to hyponatremia Continue home carvedilol 25 mg twice daily, Losartan 100 mg daily and increase amlodipine 10 mg daily. (3) History of aortic dissection Impression: She presented in 2019 to the emergency department with chest pain and back pain and a CT scan was found to have a [place] type A aortic dissection. She was sent to [facility] where she underwent operative repair. This issue appears to be stable (4) Dizziness Impression: Continue to treat hyponatremia as noted above. (5) Flank pain Impression: Appears to have resolved. Continue to monitor. (6) Insomnia Impression: Ambien as needed while in the hospital. Recomend sleep referral as an outpatient if insomnia continues. (7) Hypomagnesemia Impression: Continue magnesium oxide one tablet daily for 14 days. - HPI History of Present Illness: Reva Segal is an 83 year old with a history of hypertension, chronic hy ponatremia around 132, Madan A aortic dissection in 2019 status postsurgical repair at [facility] who presents with various symptoms. The patient indicates that for the past couple weeks she has been having problems with insomnia, nausea, decreased appetite, increased generalized weakness and in the past week or so been feeling increasingly confused and "foggy". She denies having any vomiting and indicates she had been constipated but occasionally uses milk of magnesia which causes some liquid bowel movements and abdominal cramps. She denies any ongoing diarrhea but recently has been having some left flank pain that she went to her PCP for these issues. Urinalysis in the office a couple days ago showed blood and an outpatient CT scan was ordered to evaluate for kidney stones. Over the past couple days she has had increasing generalized weakness and disorientation, thus she decided to come to the emergency department for further evaluation. She denies having any fevers, chills, chest pain, cough, dyspnea, orthopnea, PND, current abdominal pain, melena. She does indicate that she has polyuria and she has been drinking 5-6 eight ounce glasses of water per day and usually brings bottled water with her wherever she goes. In the emergency department her vitals were unremarkable and her mentation seems slightly slowed however she was alert and oriented without any focal neurologic deficit. A CT of her head was unremarkable and a CT of her abdomen/pelvis which showed her chronic aortic dissection findings (no acute pathology) along with findings that could represent enteritis versus a normal finding for her, but no significant renal issues aside from a 5.4 cm simple right renal cyst. Her labs however showed a serum sodium of 120, whereas her baseline hyponatremia is usually around 132. She was given 1 L of normal saline in the emergency department then admitted for further care and treatment of her hyponatremia. Of note she has been hospitalized in the past with gastroenteritis and hyponatremia, with her hyponatremia improving with fluid resuscitation. There is a note that indicates she could potentially have SIADH but that was not formally diagnosed. The patient denies having any recent medication changes and currently takes amlodipine 5 mg at nighttime, Coreg 25 mg twice daily, losartan 100 mg daily and spironolactone 12.5 mg daily. - HOSPITAL COURSE Hospital Course: Reva Segal was admitted to the hospital as an inpatient.TSH cortisol and triglycerides were unremarkable.The etiology of her hyponatremia is not entirely clear but thought to be secondary to excess water intake and possibly SIADH. She was placed on a 1500 mL fluid restriction and initially treated with normal saline but then transition to salt tablets. Prior to discharge patient was taking 8 g of salt tablets each day. During her admission she also received several doses of Lasix for diuresis with goal of increasing her serum sodium. Initial serum sodium was 120 and on discharge serum sodium is 130. Patient is now stable for discharge to home. - ALLERGIES Allergies/Adverse Reactions: Allergies Allergy/AdvReac Type Severity Reaction Status Date / Time codeine Allergy Hives Verified 02/21/24 12:44 loratadine [From Claritin-D] Allergy Emesis Verified 02/21/24 12:44 meperidine HCl * Allergy Hives Verified 02/21/24 12:44 [From Demerol] pseudoephedrine sulfate * Allergy Emesis Verified 02/21/24 12:44 [From Claritin-D] - MEDICATIONS Home Medications: Ambulatory Orders Medication Instructions Recorded Confirmed Losartan Potassium 1 tab PO DAILY 02/21/24 02/21/24 carvediloL [Coreg] 1 tab PO BID 02/21/24 02/21/24 Magnesium Oxide [Mag Ox] 400 mg PO DAILY #14 tab 02/28/24 Sodium Chloride [Salt Tab] 1 gm PO TID #90 tab 02/28/24 amLODIPine [Norvasc] 10 mg PO DAILY #30 tab 02/28/24 - PHYSICAL EXAM AT DISCHARGE General Appearance: positive: No acute distress, Alert Eyes Bilateral: positive: Normal inspection, Conjunctivae nml Neck: positive: Thyroid nml, No JVD Respiratory: positive: Other (Good air exchange in all lung zimmerman no wheezing no crackles.) Cardiovascular: positive: Other (Positive S1-S2 no extra heart sounds.) Abdomen: positive: Other (Soft nontender nondistended positive bowel sounds.) Skin: positive: No rash Extremities: positive: No pedal edema Neurologic/Psychiatric: positive: Oriented x3, Motor nml - LABS Result Diagrams: 02/24/24 04:30 02/28/24 04:36 - SEPSIS Current Stage of Sepsis: Ruled out - QUALITY (Female Hip Fx Only) Was patient sent home on osteoporosis medication?: No - FOLLOW UP Follow Up: Please follow-up with your primary care provider, Tsering Fletcher and 2-4 weeks. - TIME SPENT Time Spent in Discharge (Minutes): 32 (32 minutes coordinating discharge and counseling patient prior to discharge. )
[2024-02-28] MEDS ORDERED: SODIUM CHLORIDE 1 GM TABLET PO SCH ×2 (14:00→19:30)
== END 2024-02-28 14:10 | disposition home or self-care (01) | DRG 641 ==
LOC: ED 12:41 → MS2 17:22 → OBSVTOIN 02-22 10:04
PROVIDERS: ADMIT Hospitalist; ATTEND Internal Medicine
DX: E87.1 Hypo-osmolality and hyponatremia (principal); Z68.1 Body mass index [BMI] 19.9 or less, adult; R10.13 Epigastric pain; I10 Essential (primary) hypertension; Z86.79 Personal history of other diseases of the circulatory system; M54.50 Low back pain, unspecified; M54.6 Pain in thoracic spine; R10.9 Unspecified abdominal pain; G47.00 Insomnia, unspecified; R11.0 Nausea; E83.42 Hypomagnesemia; R63.0 Anorexia; R53.1 Weakness; R41.0 Disorientation, unspecified
CPT/HCPCS: 36415; 70450; 74177; 80048; 80053; 81003; 82306; 82533; 83690; 83735; 84100; 84295; 84300; 84443; 84478; 85025; 96360; 96361; 99284; 99285; A9270; G0378; J1650; J3590; Q9967; 81001; 87086

== ENCOUNTER 2024-03-09 10:29 | Outpatient (CLI) | payer MEDICARE, BC ==
[2024-03-09 12:38] LABS: CALCIUM 9.9 mg/dL (8.5-10.3); CREATININE 0.5 mg/dL (0.6-1.3); MAGNESIUM 1.9 mg/dL (1.7-2.3); POTASSIUM 4.1 mmol/L (3.5-4.5)
== END 2024-03-09 10:30 | disposition home or self-care (01) ==
LOC: LAB.N 10:29
PROVIDERS: ATTEND Physician Assistant Medical
DX: E87.1 Hypo-osmolality and hyponatremia (principal); E83.42 Hypomagnesemia
CPT/HCPCS: 36415; 80048; 83735

== ENCOUNTER 2024-04-05 09:45 | Outpatient (CLI) | payer MEDICARE, BC ==
[2024-04-05 12:23] LABS: ALBUMIN 3.9 g/dL (3.2-5.5); ALBUMIN/GLOBULIN RATIO 1.9 (1.0-2.2); BILIRUBIN,TOTAL 0.5 mg/dL (0.2-1.0); CALCIUM 9.5 mg/dL (8.5-10.3); CREATININE 0.6 mg/dL (0.6-1.3); MAGNESIUM 1.9 mg/dL (1.7-2.3); POTASSIUM 4.5 mmol/L (3.5-4.5)
== END 2024-04-05 10:00 | disposition home or self-care (01) ==
LOC: LAB.N 09:45
PROVIDERS: ATTEND Physician Assistant Medical
DX: E87.1 Hypo-osmolality and hyponatremia (principal); E83.42 Hypomagnesemia
CPT/HCPCS: 36415; 80053; 83735